=== PATIENT | male | born 1975 | race Caucasian/White ===

== ENCOUNTER 2017-06-17 10:00 | Observation (INO) | payer SELFPAY ==
[2017-06-17 10:40] LABS: Bacteria,Urine 1+ /HPF (Negative); Bilirubin,Urine NEG (Negative); Blood,Urine SM (Negative); Ketones,Urine NEG (Negative); Leukocyte Esterase,Urine NEG (Negative); Mucus,Urine 1+ /HPF; Nitrite,Urine NEG (Negative); Urobilinogen,Urine < 2.0 mg/dL (<2.0)
[2017-06-17 10:59] LABS: Basophils % (Auto) 0.1 % (0.0-1.8); Eosinophils % (Auto) 0.1 % (0.0-4.3); Hematocrit 39.4 % (35.5-45.6); Hemoglobin 13.3 gm/dl (11.8-15.2); Mean Corpuscular HGB Conc 34 % (32-34); Mean Corpuscular Hemoglobin 30 pg (28-32); Mean Corpuscular Volume 89 fl (84-94); Platelet Count 281 K/mm3 (140-440); Red Blood Count 4.45 M/mm3 (3.65-5.03); Red Cell Distribution Width 13.4 % (13.2-15.2)
[2017-06-17 11:18] LABS: Alanine Aminotransferase 28 units/L (7-56); Albumin 4.1 g/dL (3.9-5); Albumin/Globulin Ratio 1.1 %; Alkaline Phosphatase 37 units/L (35-129); Anion Gap 17 mmol/L; BUN/Creatinine Ratio 14; Blood Urea Nitrogen 13 mg/dL (9-20); Calcium 8.7 mg/dL (8.4-10.2); Carbon Dioxide 26 mmol/L (22-30); Chloride 97.2 mmol/L (98-107); Glucose 114 mg/dL (75-100); Lipase 15 units/L (13-60); Potassium 3.5 mmol/L (3.6-5.0); Sodium 137 mmol/L (137-145); Total Protein 7.9 g/dL (6.3-8.2)
[2017-06-17] MEDS ORDERED: NACL 0.9% 1000 ML 1,000 ML ONE (12:40)
[2017-06-17] MEDS ORDERED: ZOFRAN ONE ×2 (12:40→16:06)
[2017-06-17] MEDS ORDERED: DILAUDID ONE ×2 (12:40→16:02)
--- NOTE | 2017-06-17 12:41 | Emergency Department Report ---
ED Abdominal Pain [facility] - General Chief Complaint: Abdominal Pain Stated Complaint: ABDOMINAL PAIN Time Seen by Provider: 06/17/17 12:38 Source: patient Mode of arrival: Ambulatory Limitations: No Limitations - History of Present Illness Initial Comments: Patient has been having lower abdominal pain for the past 2 days. Does state it began in the suprapubic area and migrated to the right. He denied any testicular swelling but stated the pain did radiate there. He also denied any signs of a hernia in his groin. He denied back pain. He stated he felt as if he had fever and chills but did not measure his temperature. He states the pain is moderately severe in the right lower quadrant of the abdomen. He had some nausea earlier but does not complain about this now. He just had some soup for breakfast this a.m. Complaint: abdominal pain -: Gradual, days(s) Location: RLQ Migration to: RLQ (from the suprapubic area) Severity: severe Severity scale (0 -10): 10 Quality: aching Consistency: constant Improves With: nothing Worsens With: nothing - Related Data Allergies Allergy/AdvReac Type Severity Reaction Status Date / Time No Known Allergies Allergy Verified 06/17/17 10:08 ED Review of Systems ROS: Stated complaint: ABDOMINAL PAIN Other details as noted in HPI ED Past Medical Hx - Past Medical History Previous Medical History?: No Additional medical history: Denies any medical history. - Surgical History Past Surgical History?: No - Social History Smoking Status: Never Smoker Substance Use Type: None ED Physical Exam - General Limitations: No Limitations General appearance: alert, in no apparent distress - Head Head exam: Present: atraumatic, normocephalic - Eye Eye exam: Present: normal appearance. Absent: scleral icterus - ENT ENT exam: Present: mucous membranes moist - Neck Neck exam: Present: normal inspection - Respiratory Respiratory exam: Present: normal lung sounds bilaterally. Absent: respiratory distress - Cardiovascular Cardiovascular Exam: Present: regular rate, normal rhythm. Absent: systolic murmur, diastolic murmur, rubs, gallop - GI/Abdominal GI/Abdominal exam: Present: soft, distended, tenderness (mildly quite tender right lower quadrant), guarding, rebound, rigid (forearm in the right lower quadrant but not diffusely), normal bowel sounds, other (positive Rovsing sign) - Rectal Rectal exam: Present: deferred - Extremities Exam Extremities exam: Present: normal inspection - Back Exam Back exam: Present: normal inspection - Neurological Exam Neurological exam: Present: alert, oriented X3, CN II-XII intact. Absent: motor sensory deficit - Psychiatric Psychiatric exam: Present: normal affect, normal mood - Skin Skin exam: Present: warm, dry, intact, normal color. Absent: rash ED Course Vital Signs 06/17/17 06/17/17 06/17/17 10:05 12:35 12:48 Temperature 99.1 F 100.6 F H Pulse Rate 91 H 86 Respiratory 16 20 18 Rate Blood Pressure 131/78 Blood Pressure 146/83 [Right] O2 Sat by Pulse 98 100 Oximetry - Reevaluation(s) Reevaluation #1: Patient is given IV fluids and Zosyn on arrival. The surgeon doctor, Dr. Meza was informed of the probability of appendicitis prior to CT. She came to the emergency department to inform me the CT was positive and she would be taking the patient to the operating room. 06/17/17 14:02 ED Medical Decision Making - Lab Data Result diagrams: 06/17/17 10:43 06/17/17 10:43 Laboratory Results - last 24 hr 06/17/17 06/17/17 06/17/17 10:26 10:43 10:43 WBC 18.0 H RBC 4.45 Hgb 13.3 Hct 39.4 MCV 89 MCH 30 MCHC 34 RDW 13.4 Plt Count 281 Lymph % (Auto) 9.0 L [place] % (Auto) 7.6 H Eos % (Auto) 0.1 Baso % (Auto) 0.1 Lymph # 1.6 [place] # 1.4 H Eos # 0.0 Baso # 0.0 Seg Neutrophils % 83.2 H Seg Neutrophils # 14.9 H Sodium 137 Potassium 3.5 L Chloride 97.2 L Carbon Dioxide 26 Anion Gap 17 BUN 13 Creatinine 0.9 Estimated GFR > 60 BUN/Creatinine Ratio 14 Glucose 114 H Calcium 8.7 Total Bilirubin 0.80 AST 19 ALT 28 Alkaline Phosphatase 37 Total Protein 7.9 Albumin 4.1 Albumin/Globulin Ratio 1.1 Lipase 15 Urine Color Yellow Urine Turbidity Clear Urine pH 6.0 Ur Specific [place] 1.026 Urine Protein 30 mg/dl Urine Glucose (UA) Neg Urine Ketones Neg Urine Blood Sm Urine Nitrite Neg Urine Bilirubin Neg Urine Urobilinogen < 2.0 Ur Leukocyte Esterase Neg Urine WBC (Auto) 1.0 Urine RBC (Auto) 11.0 Urine Bacteria (Auto) 1+ Urine Mucus 1+ - Radiology Data interpreted by me: The patient has a huge nonperforated appendix with multiple appendicoliths. Critical care attestation.: If time is entered above; I have spent that time in minutes in the direct care of this critically ill patient, excluding procedure time. ED Disposition Clinical Impression: Appendicitis Qualifiers: Appendicitis type: acute appendicitis Acute appendicitis type: unspecified acute appendicitis type Qualified Code(s): K35.80 - Unspecified acute appendicitis Disposition: OP ADMIT IP TO THIS HOSP Is pt being admited?: Yes Does the pt Need Aspirin: No Condition: Stable Referrals: PRIMARY CARE, [Primary Care Provider] - 3-5 Days Time of Disposition: 14:05
[2017-06-17] MEDS ORDERED: NACL 0.9% 1000 ML 1,000 ML IV ONE (12:45)
[2017-06-17] MEDS ORDERED: ZOSYN/NS 4.5GM/100ML 4.5 GM/100 ML VIAL IV ONE (12:46)
[2017-06-17] MEDS ORDERED: DILAUDID IV ONE ×2 (12:46→14:04)
[2017-06-17] MEDS ORDERED: ZOFRAN IV ONE (12:46)
[2017-06-17] MEDS ORDERED: NACL ONE (12:55)
--- NOTE | 2017-06-17 13:26 | Cat Scan Report ---
CT ABDOMEN PELVIS WITH CONTRAST: HISTORY: Right lower quadrant abdominal pain. COMPARISON: none. TECHNIQUE: Helical CT in 1.25mm intervals following IV contrast. Sagittal and coronal reconstructions. FINDINGS: Lung bases: normal. Liver: normal. Biliary system: normal. Pancreas: normal. Spleen: normal. Kidneys/ureters/bladder: normal. Adrenal glands: normal. Aorta: normal. Intestines: normal. Appendix: Multiple appendicoliths are identified in the proximal appendix. The appendix is markedly dilated measuring up to 1.3 cm with wall thickening and enhancement. There is moderate surrounding fluid but no evidence for free air or abscess. Pelvic viscera: normal. Musculoskeletal: normal. IMPRESSION: Acute appendicitis. No evidence for perforation at this time.
[2017-06-17] MEDS ORDERED: MORPHINE IV PRN ×2 (14:13→16:16)
[2017-06-17] MEDS ORDERED: ZOFRAN IV PRN (14:13)
[2017-06-17] MEDS ORDERED: TYLENOL PO PRN (14:13)
--- NOTE | 2017-06-17 14:13 | History and Physical Report ---
History of Present Illness Date of examination: 06/17/17 Date of admission: 06/17/17 Chief complaint: abdominal pain History of present illness: 41 yo M with no PMHx presents to ER with 24 hours of severe abdominal pain which started at the umbilicus and now is more severe in the RLQ. It has been associated with subjective fevers, nausea, nonbloody/nonbilious emesis, and diarrhea. The pain is sharp in nature. The patient's last meal was yesterday. He has never had pain like this before. Past History Past Medical History: No medical history Past Surgical History: No surgical history Social history: no significant social history, , full code Family history: no significant family history Medications and Allergies Allergies Allergy/AdvReac Type Severity Reaction Status Date / Time No Known Allergies Allergy Verified 06/17/17 10:08 Active Meds: Active Medications Sodium Chloride (Nacl 0.9% 1000 Ml) 1,000 mls @ 150 mls/hr IV DIRECT CHARLEE Review of Systems All systems: negative (see hpi) Exam Vital Signs Temp Pulse Resp BP Pulse Ox 99.1 F 91 H 16 131/78 98 06/17/17 10:05 06/17/17 10:05 06/17/17 10:05 06/17/17 10:05 06/17/17 10:05 Narrative exam: Gen: AAOx3. NAD CV: S1, S2+ resp: No audible wheezes Abd: soft, ND, + TTP in RLQ, +guarding, +rebound. Ext: No c/c/e Results - Labs 06/17/17 10:43 06/17/17 10:43 Abnormal lab results 06/17/17 06/17/17 Range/Units 10:43 10:43 WBC 18.0 H (4.5-11.0) K/mm3 Lymph % (Auto) 9.0 L (13.4-35.0) % [place] % (Auto) 7.6 H (0.0-7.3) % [place] # 1.4 H (0.0-0.8) K/mm3 Seg Neutrophils % 83.2 H (40.0-70.0) % Seg Neutrophils # 14.9 H (1.8-7.7) K/mm3 Potassium 3.5 L (3.6-5.0) mmol/L Chloride 97.2 L (98-107) mmol/L Glucose 114 H (75-100) mg/dL Diabetes panel 06/17/17 Range/Units 10:43 Sodium 137 (137-145) mmol/L Potassium 3.5 L (3.6-5.0) mmol/L Chloride 97.2 L (98-107) mmol/L Carbon Dioxide 26 (22-30) mmol/L BUN 13 (9-20) mg/dL Creatinine 0.9 (0.8-1.5) mg/dL Glucose 114 H (75-100) mg/dL Calcium 8.7 (8.4-10.2) mg/dL AST 19 (5-40) units/L ALT 28 (7-56) units/L Alkaline Phosphatase 37 (35-129) units/L Total Protein 7.9 (6.3-8.2) g/dL Albumin 4.1 (3.9-5) g/dL Calcium panel 06/17/17 Range/Units 10:43 Calcium 8.7 (8.4-10.2) mg/dL Albumin 4.1 (3.9-5) g/dL Pituitary panel 06/17/17 Range/Units 10:43 Sodium 137 (137-145) mmol/L Potassium 3.5 L (3.6-5.0) mmol/L Chloride 97.2 L (98-107) mmol/L Carbon Dioxide 26 (22-30) mmol/L BUN 13 (9-20) mg/dL Creatinine 0.9 (0.8-1.5) mg/dL Glucose 114 H (75-100) mg/dL Calcium 8.7 (8.4-10.2) mg/dL Adrenal panel 06/17/17 Range/Units 10:43 Sodium 137 (137-145) mmol/L Potassium 3.5 L (3.6-5.0) mmol/L Chloride 97.2 L (98-107) mmol/L Carbon Dioxide 26 (22-30) mmol/L BUN 13 (9-20) mg/dL Creatinine 0.9 (0.8-1.5) mg/dL Glucose 114 H (75-100) mg/dL Calcium 8.7 (8.4-10.2) mg/dL Total Bilirubin 0.80 (0.1-1.2) mg/dL AST 19 (5-40) units/L ALT 28 (7-56) units/L Alkaline Phosphatase 37 (35-129) units/L Total Protein 7.9 (6.3-8.2) g/dL Albumin 4.1 (3.9-5) g/dL - Imaging CT scan - abdomen: report reviewed, image reviewed CT scan - pelvis: report reviewed, image reviewed (acute appendicitis, without perforation) Assessment and Plan 41 yo M with acute nonperforated appendicitis 1. Admit to surgery service GMF 2. NPO 3. IVF - NS@150cc/hr 4. IV abx - zosyn given in ER 5. prn pain and nausea control 6. OR today for appendectomy - all risks of surgery discussed and patient signed consent, all questions answered.
[2017-06-17] MEDS ORDERED: NACL 0.9% 1000 ML 1,000 ML IV SCH ×3 (14:17→17:00)
[2017-06-17] MEDS ORDERED: ZEMURON IV ONE (14:30)
[2017-06-17] MEDS ORDERED: QUELICIN ONE (14:30)
[2017-06-17] MEDS ORDERED: XYLOCAINE MPF 2% ONE (14:30)
[2017-06-17] MEDS ORDERED: SUBLIMAZE ONE (14:30)
[2017-06-17] MEDS ORDERED: DIPRIVAN 10 MG/ML IV ONE (14:31)
[2017-06-17] MEDS ORDERED: XYLOCAINE 1% 20 mL ONE (14:52)
[2017-06-17] MEDS ORDERED: MARCAINE 0.25% INFILTRATI ONE ×2 (14:52→14:53)
[2017-06-17] MEDS ORDERED: NACL 0.9% IR ONE ×2 (14:53)
[2017-06-17] MEDS ORDERED: ROBINUL ONE ×2 (16:01)
[2017-06-17] MEDS ORDERED: NEOSTIGMINE ONE (16:01)
--- NOTE | 2017-06-17 16:15 | Anesthesia Day of Surgery ---
Anesthesia Day of Surgery - Day of Surgery Patient Examined: Yes Patient H&P Reviewed: Yes Patient is NPO: Yes
--- NOTE | 2017-06-17 16:15 | Anesthesia Consultation ---
Anesthesia Consult and Med Hx Date of service: 06/17/17 - Airway Anesthetic Teeth Evaluation: Good ROM Head & Neck: Adequate Mental/Hyoid Distance: Adequate Mallampati Class: Class II Intubation Access Assessment: Probably Good - Pulmonary Exam CTA: Yes - Cardiac Exam Cardiac Exam: RRR - Pre-Operative Health Status ASA Pre-Surgery Classification: ASA1 Proposed Anesthetic Plan: General - Pulmonary Hx Smoking: No - Cardiovascular System Hx Hypertension: No - Central Nervous System Hx Neuromuscular Disorder: No - Endocrine Hx Renal Disease: No
--- NOTE | 2017-06-17 16:54 | Operative Report ---
Operative Report Operative Report: Date of operation: 06/17/17 Preoperative diagnosis: acute appendicitis Postoperative diagnosis: acute gangrenous appendicitis Procedure performed: Laparoscopic appendectomy Surgeon: Tayla Meza DO Anesthesia: GETA Findings: Dilated, thickened, inflammed appendix with evidence of gangrene. Not perforated. EBL:<10cc Specimen: appendix Disposition/Condition: stable to PACU HPI and indication: 41 yo M presented to ER with RLQ pain x24 hours and fevers. He was found to have an elevated WBC and acute appendicitis on CT scan. It was decided to take him to the OR for appendectomy. All risks of surgery were discussed with the patient and his family and consent signed. Procedure in detail: Patient was identified in the preop area and taken back to the OR and placed on the OR table in supine position. After anesthesia was induced a cruz catheter was steriley placed by the circulating nurse. A time out was performed. The abdomen was insufflated via veress needle through a 5mm supraumbilical incision. Once insufflated to 15mmHg the veress needle was withdrawn and a 5mm trocar was placed using visiport. The abdomen was inspected and no underlying injury to the abdominal structures was identified. A 5mm trocar suprapubic and 12 mm LLQ trocars were placed under direct visualization. Local anesthetic was infiltrated into skin at port sites prior to incisions. The appendix was visualized and noted to be dilated, inflammed, and gangrenous. It was also adhesed to the small bowel mesentery. These adhesions were taken down bluntly with great care. The base of the appendix was identified. There was inflammatory fluid in the pelvis and along the right paracolic gutter without evidence of pus. The mesentery of the appendix was ligated using the harmonic scalpel. The base of the appendix was transected using an ethicon flex stapler 45mm white load. The appendix was placed into an endocatch bag and removed via the 12 mm port. This was passed off the table as specimen. The staple line and mesentery were then inspected. A clip was placed at the staple line where there was some mild oozing of blood. This area was irrigated and no further bleeding identified. The pelvis was gently irrigated and simple fluid suctioned out. The ports were all removed under direct visualization and the abdomen desufflated. The 12mm port fascia was closed with a single interrupted 0 vicryl stitch. All skin incisions were closed using 4-0 monocryl subcuticular stitches and skin glue. At the end of the case, all sponge, instrument, sharp counts were correct x2. The patient was awoken from anesthesia, cruz catheter removed, and taken to PACU in stable condition.
[2017-06-17] MEDS: PERCOCET 5/325 PO PRN (21:12)
[2017-06-17] MEDS: ZOSYN/NS 4.5GM/100ML 4.5 GM/100 ML VIAL IV SCH (21:15)
[2017-06-17] MEDS: HEPARIN SUB-Q SCH (22:00)
--- NOTE | 2017-06-17 23:23 | Post Anesthesia Evaluation ---
- Post Anesthesia Evaluation Patient Participated: Yes Airway Patent: Yes Stable Respiratory Function: Yes Nausea/Vomiting: No Temp > 96.8F: Yes Pain Manageable: Yes Adequeate Hydration: Yes Anesthesia Complications: No Block Receding Appropriately: Not Applicable Patient on Ventilator: No
[2017-06-18] MEDS: ZOSYN/NS 4.5GM/100ML 4.5 GM/100 ML VIAL IV SCH ×2 (05:19→16:14)
[2017-06-18 06:03] LABS: Basophils % (Auto) 0.1 % (0.0-1.8); Eosinophils % (Auto) 0.1 % (0.0-4.3); Hematocrit 35.4 % (35.5-45.6); Hemoglobin 12.1 gm/dl (11.8-15.2); Mean Corpuscular HGB Conc 34 % (32-34); Mean Corpuscular Hemoglobin 31 pg (28-32); Mean Corpuscular Volume 91 fl (84-94); Platelet Count 230 K/mm3 (140-440); Red Cell Distribution Width 13.2 % (13.2-15.2); White Blood Count 12.6 K/mm3 (4.5-11.0)
[2017-06-18 06:22] LABS: BUN/Creatinine Ratio 18; Blood Urea Nitrogen 14 mg/dL (9-20); Calcium 7.6 mg/dL (8.4-10.2); Carbon Dioxide 25 mmol/L (22-30); Glucose 101 mg/dL (75-100)
[2017-06-18 06:23] LABS: Anion Gap 17 mmol/L; Chloride 100.3 mmol/L (98-107); Potassium 3.8 mmol/L (3.6-5.0); Sodium 138 mmol/L (137-145)
[2017-06-18] MEDS: HEPARIN SUB-Q SCH ×2 (07:00→13:08)
[2017-06-18 08:34] VITALS: BP 103/66
--- NOTE | 2017-06-18 10:07 | Discharge Summary ---
Providers - Providers Date of Admission: 06/17/17 14:13 Date of discharge: 06/18/17 Attending physician: ISABELLE PALACIO DO Primary care physician: HOUSEHOLD COOK Hospitalization Reason for admission: acute appendicitis Condition: Stable Pertinent studies: Ct A/P Procedures: Laparoscopic appendectomy Hospital course: 41 yo M presented to hospital with abdominal pain. He was diagnosed with acute appendicitis and was taken to the OR for laparoscopic appendectomy. Recovery was uneventful. He was tolerating a regular diet, ambulating, and voiding on his own. Pain was controlled with oral pain meds. Disposition: DC-01 TO HOME OR SELFCARE Time spent for discharge: 20 minutes - Discharge Diagnoses (1) Appendicitis Status: Acute Qualifiers: Appendicitis type: acute appendicitis Acute appendicitis type: unspecified acute appendicitis type Qualified Code(s): K35.80 - Unspecified acute appendicitis Core Measure Documentation - Palliative Care Palliative Care/ Comfort Measures: Not Applicable - Core Measures Any of the following diagnoses?: none Exam - Physical Exam Narrative exam: Gen: AAOx3. NAD CV: s1, S2+ Resp: No audible wheezes Abd: soft, mildly distended, mildly tender. incisions c/d/i. no r/r/g Ext: no c/c/e - Constitutional Vitals: Temp Pulse Resp BP Pulse Ox 99.2 F 92 H 18 103/66 95 06/18/17 08:14 06/18/17 08:14 06/18/17 08:14 06/18/17 08:14 06/18/17 08:14 Plan Activity: other (avoid heavy lifting of more than 15 lbs for the next 2 weeks. No driving if taking narcotic pain meds) Diet: regular Wound: open to air, other (May shower, no baths/hottubs/pools until incisions healed. Pat incisions dry, do not scrub) Additional Instructions: Call surgeon's office if temp>100.4, intractable nausea /vomiting, increasing abdominal pain Follow up with: ISABELLE PALACIO DO [Staff Physician] - 14 Days PRIMARY CARE, [Primary Care Provider] - 14 Days Prescriptions: oxyCODONE /ACETAMINOPHEN [Percocet 5/325 mg] 2 tab PO Q6H PRN #20 tablet PRN Reason: Pain, Moderate (4-6)
[2017-06-18] MEDS: PERCOCET 5/325 PO PRN (10:27)
[2017-06-18] MEDS ORDERED: MORPHINE IV ONE (12:00)
[2017-06-18] MEDS ORDERED: MIRALAX 3350 PO ONE (14:00)
== END 2017-06-18 16:35 | disposition home or self-care (01) ==
LOC: ED 10:00 → 3B-SURG 14:13
PROVIDERS: ADMIT Surgery; ATTEND Surgery
DX: K35.80 Unspecified acute appendicitis (principal)
CPT/HCPCS: 36415; 44970; 74177; 80048; 80053; 81001; 83690; 85025; 88304; 96365; 96372; 96375; 96376; 99285; A4217; G0378; J0330; J1170; J1644; J2270; J2405; J2543; J2704; J2710; J3010; J7030; Q9967

== ENCOUNTER 2017-06-21 08:04 | Emergency (ER) | payer OTHER ==
[2017-06-21 09:30] LABS: Basophils % (Auto) 0.2 % (0.0-1.8); Hematocrit 39.2 % (35.5-45.6); Hemoglobin 13.2 gm/dl (11.8-15.2); Mean Corpuscular HGB Conc 34 % (32-34); Mean Corpuscular Hemoglobin 30 pg (28-32); Mean Corpuscular Volume 90 fl (84-94); Platelet Count 380 K/mm3 (140-440); Red Blood Count 4.34 M/mm3 (3.65-5.03); Red Cell Distribution Width 13.2 % (13.2-15.2); White Blood Count 14.9 K/mm3 (4.5-11.0)
[2017-06-21 09:35] LABS: Bilirubin,Urine NEG (Negative); Blood,Urine SM (Negative); Ketones,Urine NEG (Negative); Leukocyte Esterase,Urine NEG (Negative); Nitrite,Urine NEG (Negative); Protein,Urine <15 mg/dL mg/dL (Negative)
[2017-06-21 09:39] LABS: Anion Gap 19 mmol/L; BUN/Creatinine Ratio 14; Blood Urea Nitrogen 10 mg/dL (9-20); Calcium 8.9 mg/dL (8.4-10.2); Carbon Dioxide 27 mmol/L (22-30); Chloride 96.3 mmol/L (98-107); Glucose 107 mg/dL (75-100); Potassium 5.2 mmol/L (3.6-5.0); Sodium 137 mmol/L (137-145)
[2017-06-21] MEDS ORDERED: NACL 0.9% 500 ML 500 ML IV ONE (10:22)
--- NOTE | 2017-06-21 10:22 | Emergency Department Report ---
ED General Adult HPI - General Chief complaint: Urogenital-Male Stated complaint: ABDOMINAL PAIN Time Seen by Provider: 06/21/17 10:20 Source: patient, RN notes reviewed, old records reviewed Mode of arrival: Ambulatory Limitations: Language Barrier - History of Present Illness Initial comments: senior underwriting assistant: Araceli Sommer This is a 41-year-old male who was previously unknown to this provider, patient recently admitted to this hospital for laparoscopic appendectomy. Patient presents to the ER with a complaint of left flank pain. The pain is achy and sharp. It increases with palpation and range of motion. It decreases with rest. Patient reports like he feels like something is occasionally moving into his left testicle. However he denies testicular pain, testicular swelling , irritative/obstructive urinary symptoms. No headache, neck pain, chest pain, right lower quadrant abdominal pain or shortness of breath. -: Gradual, hour(s) Location: abdomen Radiation: other (groin, testicle) Consistency: constant Improves with: rest Worsens with: movement Associated Symptoms: denies: confusion, chest pain, cough, diaphoresis, fever/ chills, headaches, loss of appetite, malaise, nausea/vomiting, shortness of breath, syncope, weakness - Related Data Previous Rx's Medication Instructions Recorded Last Taken Type oxyCODONE /ACETAMINOPHEN [Percocet 2 tab PO Q6H PRN #20 tablet 06/18/17 Unknown Rx 5/325 mg] Acetaminophen [Tylenol Arthritis] 650 mg PO Q6HR PRN #30 tablet.er 06/21/17 Unknown Rx oxyCODONE [Roxicodone] 5 mg PO Q6HR PRN #20 tablet 06/21/17 Unknown Rx Allergies Allergy/AdvReac Type Severity Reaction Status Date / Time No Known Allergies Allergy Verified 06/21/17 08:42 ED Review of Systems ROS: Stated complaint: ABDOMINAL PAIN Other details as noted in HPI Constitutional: denies: fever Eyes: denies: eye discharge ENT: denies: epistaxis Respiratory: denies: cough Cardiovascular: denies: chest pain Gastrointestinal: abdominal pain Genitourinary: denies: urgency, dysuria, testicular pain Musculoskeletal: as per HPI Skin: as per HPI Neurological: as per HPI Psychiatric: as per HPI ED Past Medical Hx - Past Medical History Hx Hypertension: No Hx Congestive Heart Failure: No Hx Diabetes: No Hx Renal Disease: No Hx Asthma: No Hx COPD: No Additional medical history: Denies any medical history. - Surgical History Past Surgical History?: No - Social History Smoking Status: Current Some Day Smoker - Medications Home Medications: Home Medications Medication Instructions Recorded Confirmed Last Taken Type oxyCODONE /ACETAMINOPHEN [Percocet 2 tab PO Q6H PRN #20 tablet 06/18/17 Unknown Rx 5/325 mg] Acetaminophen [Tylenol Arthritis] 650 mg PO Q6HR PRN #30 tablet.er 06/21/17 Unknown Rx oxyCODONE [Roxicodone] 5 mg PO Q6HR PRN #20 tablet 06/21/17 Unknown Rx ED Physical Exam - General Limitations: Language Barrier General appearance: alert, in no apparent distress - Head Head exam: Present: atraumatic, normocephalic - Eye Eye exam: Present: normal appearance, EOMI. Absent: nystagmus - ENT ENT exam: Present: normal exam, normal orophraynx, mucous membranes moist, normal external ear exam - Neck Neck exam: Present: normal inspection, full ROM - Respiratory Respiratory exam: Present: normal lung sounds bilaterally. Absent: respiratory distress - Cardiovascular Cardiovascular Exam: Present: regular rate, normal rhythm, normal heart sounds. Absent: systolic murmur, diastolic murmur, rubs, gallop - GI/Abdominal GI/Abdominal exam: Present: soft, tenderness, normal bowel sounds, other (the left flank is tender, there is no right lower quadrant tenderness, there is no redness, pus or streaking). Absent: distended, guarding, rebound, rigid, pulsatile mass - Rectal Rectal exam: Present: deferred - exam: Present: normal inspection, other (there is no testicular tenderness. There is normal testicular lie bilaterally. There is normal cremasteric reflex bilaterally.). Absent: testicular tenderness External exam: Present: normal external exam - Extremities Exam Extremities exam: Present: normal inspection, full ROM, normal capillary refill. Absent: pedal edema, joint swelling, calf tenderness - Back Exam Back exam: Present: normal inspection, full ROM. Absent: tenderness, CVA tenderness (R), paraspinal tenderness, vertebral tenderness - Neurological Exam Neurological exam: Present: alert, oriented X3, CN II-XII intact, other ( Extraocular movements intact. Tongue midline. No facial droop. Facial sensation intact to light touch in the V1, V2, V3 distribution bilaterally. 5 and 5 strength in 4 extremities.. Sensation is intact to light touch in 4 extremities.). Absent: motor sensory deficit - Psychiatric Psychiatric exam: Present: normal affect, normal mood - Skin Skin exam: Present: warm, dry, intact, normal color. Absent: rash ED Course Vital Signs 06/21/17 06/21/17 06/21/17 08:42 10:23 10:30 Temperature 98.6 F Pulse Rate 80 85 85 Respiratory 20 16 20 Rate Blood Pressure 128/79 137/88 O2 Sat by Pulse 99 Oximetry 06/21/17 10:35 Temperature 98.5 F Pulse Rate Respiratory Rate Blood Pressure O2 Sat by Pulse Oximetry - Reevaluation(s) Reevaluation #1: 06/21/17 12:37 Differential diagnosis, including but not limited to: Postoperative pain, intra- abdominal abscess, musculoskeletal pain Assessment and plan: 41-year-old male with a primary complaint of left lower quadrant abdominal pain after recent laparoscopic appendectomy. He is adamant using a fluent gettering operator that he has no testicular pain whatsoever. On this providers examination, he has no testicular tenderness, and normal cremasteric reflex, and a normal testicular lie. A testicular ultrasound was ordered prior to my evaluation, and had some concerning findings for possible torsion. My opinion, the patient's history and physical do not suggest or support the diagnosis of testicular torsion. The patient was also seen and personally examined by the urology specialist, Dr. Ross Jackson; he had the patient's testicular ultrasound repeated, and he indicated that the patient's history and physical will also not consistent with testicular torsion, and he indicated the patient did not require emergent orchiectomy. Patient was also seen and personally examined by his general surgeon, Dr. Palacio ; she requested conservative care, pain control, and heating pad. Reevaluation #2: 06/21/17 14:01 CT scan of the abdomen and pelvis with IV contrast demonstrates expected postoperative from postsurgical changes. Patient was again interviewed with the gettering operator, Araceli Sommer; the patient is adamant that his never had testicular pain, he has only had postoperative pain in the left side. His general surgeon has recommended a warm compress, she has requested that I refill the prescriptions pain medication, the patient will be discharged at this time. He has been resting comfortably in the ER for hours without clinical decompensation. ADDENDUM Addendum by Dr. Garg, 12:30 PM, 06/21/2017. 3 additional images obtained by Dr. Jackson in ultrasound department, 11:13 AM, 06/21/2017 again demonstrates preserved left testicular blood flow. Though echotexture again slightly heterogeneous, focal hypoechoic/heterogeneous appearance towards the inferior aspect of the left testicle now not as clearly demonstrated. Inflammatory changes may again be considered clinically with testicular torsion not as strongly suspected clinically. ED Medical Decision Making - Lab Data Result diagrams: 06/21/17 09:09 06/21/17 09:09 Vital Signs 06/21/17 06/21/17 06/21/17 08:42 10:23 10:30 Temperature 98.6 F Pulse Rate 80 85 85 Respiratory 20 16 20 Rate Blood Pressure 128/79 137/88 O2 Sat by Pulse 99 Oximetry 06/21/17 10:35 Temperature 98.5 F Pulse Rate Respiratory Rate Blood Pressure O2 Sat by Pulse Oximetry Lab Results 06/21/17 06/21/17 06/21/17 Range/Units 08:48 09:09 09:09 WBC 14.9 H (4.5-11.0) K/mm3 RBC 4.34 (3.65-5.03) M/mm3 Hgb 13.2 (11.8-15.2) gm/dl Hct 39.2 (35.5-45.6) % MCV 90 (84-94) fl MCH 30 (28-32) pg MCHC 34 (32-34) % RDW 13.2 (13.2-15.2) % Plt Count 380 (140-440) K/mm3 Lymph % (Auto) 9.0 L (13.4-35.0) % [place] % (Auto) 7.6 H (0.0-7.3) % Eos % (Auto) 2.0 (0.0-4.3) % Baso % (Auto) 0.2 (0.0-1.8) % Lymph # 1.3 (1.2-5.4) K/mm3 [place] # 1.1 H (0.0-0.8) K/mm3 Eos # 0.3 (0.0-0.4) K/mm3 Baso # 0.0 (0.0-0.1) K/mm3 Seg Neutrophils % 81.2 H (40.0-70.0) % Seg Neutrophils # 12.1 H (1.8-7.7) K/mm3 Sodium 137 (137-145) mmol/L Potassium 5.2 H D (3.6-5.0) mmol/L Chloride 96.3 L (98-107) mmol/L Carbon Dioxide 27 (22-30) mmol/L Anion Gap 19 mmol/L BUN 10 (9-20) mg/dL Creatinine 0.7 L (0.8-1.5) mg/dL Estimated GFR > 60 ml/min BUN/Creatinine Ratio 14 % Glucose 107 H (75-100) mg/dL Calcium 8.9 D (8.4-10.2) mg/dL Urine Color Yellow (Yellow) Urine Turbidity Clear (Clear) Urine pH 5.0 (5.0-7.0) Ur Specific [place] 1.023 (1.003-1.030) Urine Protein <15 mg/dl (Negative) mg/dL Urine Glucose (UA) Neg (Negative) mg/dL Urine Ketones Neg (Negative) mg/dL Urine Blood Sm (Negative) Urine Nitrite Neg (Negative) Urine Bilirubin Neg (Negative) Urine Urobilinogen 2.0 (<2.0) mg/dL Ur Leukocyte Esterase Neg (Negative) Urine WBC (Auto) 1.0 (0.0-6.0) /HPF Urine RBC (Auto) 11.0 (0.0-6.0) /HPF - Radiology Data Radiology results: report reviewed, image reviewed [facility] [address] [place] [address] Ultrasound Report Signed Patient: MICHAEL GRANDE MR#: [id number] : 1975 Acct:[id number] Age/Sex: 41 / M ADM Date: 06/21/17 Loc: ED Attending Dr: Ordering Physician: TACO BELLA MD Date of Service: 06/21/17 Procedure(s): US testicular doppler comp Accession Number(s): [id number] cc: TACO BELLA MD ULTRASOUND SCROTAL INDICATION: 41 year old with pain and swelling x 1 day. Status post appendix surgery 5 days ago. COMPARISON: 06/17/2017 CT. FINDINGS: Longitudinal and transverse grayscale and color flow sonographic evaluation of the scrotum and its contents performed. RIGHT: Normal testicular contour, echotexture and blood flow. Right testicle is 4.4 x 2.9 x 2.4 cm. Two small right epididymal head cysts measuring approximately 4 mm. Right epididymis approximately 1.2 x 0.8 cm, image 21. LEFT: Normal left testicular contour. It is however heterogeneous in its mid to lower aspect with diminished/absent blood flow in that region as on image 39. Some arterial flow though demonstrated in the upper to mid testicular aspect as on image 40. Small left hydrocele with diffuse low-level intrinsic echoes also seen, image 46. Left epididymis approximately 0.8 x 0.6 cm, image 42 with a 2 mm intrinsic cyst, image 43. Approximately 3.5 x 1 cm echogenic structure with vascularity noted in the left groin as on images 23-27, partly displaceable with compression and not excluded for a hernia. CONCLUSION: 1. Heterogeneous left testicle inferiorly with diminished/absent blood flow. Findings may represent a developing infarct or torsion in an appropriate setting. 2. Few other findings as small bilateral hydroceles, small epididymal cysts and nonspecific left groin echogenicity, amongst others, as detailed above. Please correlate. I phoned the above results to Dr. Bella in the ER, 10 AM, 06/21/2017. Thank you for the opportunity to participate in this patient's care. Transcribed By: RS Dictated By: CELY GARG MD Electronically Authenticated By: CELY GARG MD Signed Date/Time: 06/21/17 1019 Patient: MICHAEL GRANDE MR#: [id number] : 1975 Acct:[id number] Age/Sex: 41 / M ADM Date: 06/21/17 Loc: ED Attending Dr: Ordering Physician: TACO BELLA MD Date of Service: 06/21/17 Procedure(s): CT abdomen pelvis w con Accession Number(s): [id number] cc: TACO BELLA MD CT ABDOMEN AND PELVIS WITH CONTRAST INDICATION: Left-sided abdominal pain. Status post appendix surgery 5 days ago. COMPARISON: None similar. FINDINGS: Abdomen and pelvis CT performed following intravenous administration of 100 cc of Omnipaque 300. LUNG BASES: Small bibasilar pleural effusions and atelectasis, left more than right. Top normal heart size. Right hemidiaphragm slightly elevated. Slight nonspecific distal esophageal prominence. ABDOMEN: Homogenous liver, spleen and pancreas with unremarkable gallbladder, adrenals, aorta, IVC and kidneys. Slight bilateral perinephric stranding. Right hepatic lobe 20 cm in midclavicular length. No size significant adenopathy. Interval post appendectomy changes in the right lower quadrant with mild stranding. Small mesenteric fluid with lobulated/bilobed configuration in the right lower quadrant as on axial image 259, series 2, measuring approximately 8.5 cm transverse x 2 cm AP. Additional mesenteric fluid as near the root also seen more superiorly on the left measuring approximately 3 x 2 cm, axial image 203. Nonopacified GI tract evaluation otherwise limited, though grossly nonobstructive. Mild to moderate ascending and transverse colon stool. No pneumoperitoneum. PELVIS: Approximately 3.8 x 3 cm fluid noted in the mid pelvis, anterior to the rectum with minimal peripheral wall visibility, suggesting early organization. Urinary bladder, seminal vesicles, prostate and rectosigmoid appear within normal limits. No size significant adenopathy. No evidence of an inguinal hernia. Small bilateral hydroceles and some scrotal edema possible as on axial image 429, amongst others. Asymmetric enlargement of left flank muscles with intermuscular hypodense fluid measuring 8 HU as on axial images 130-260, series 2, amongst others with left sided subcutaneous stranding as well. Mild multilevel spinal spurring and slight bilateral SI joint degenerative changes. CONCLUSION: 1. Interval appendectomy with resolving intra-abdominal inflammatory changes, as described. Small mesenteric fluid noted in the mid to lower abdomen and the pelvis, as described. 2. Asymmetric left flank subcutaneous edema and muscle hypodensity/enlargement is also new, presumed iatrogenic. Please correlate. 3. New small bibasilar atelectasis and pleural effusions. 4. Few other incidental findings, as above. Thank you for the opportunity to participate in this patient's care. Transcribed By: RS Dictated By: CELY GARG MD Electronically Authenticated By: CELY GARG MD Signed Date/Time: 06/21/17 [address] Garg, 12:30 PM, 06/21/2017. 3 additional images obtained by Dr. Jackson in ultrasound department, 11:13 AM, 06/21/2017 again demonstrates preserved left testicular blood flow. Though echotexture again slightly heterogeneous, focal hypoechoic/heterogeneous appearance towards the inferior aspect of the left testicle now not as clearly demonstrated. Inflammatory changes may again be considered clinically with testicular torsion not as strongly suspected clinically. Critical care attestation.: If time is entered above; I have spent that time in minutes in the direct care of this critically ill patient, excluding procedure time. ED Disposition Clinical Impression: Abdominal wall pain Disposition: DC-01 TO HOME OR SELFCARE Is pt being admited?: No Does the pt Need Aspirin: No Condition: Stable Instructions: Acute Abdominal Pain (ED) Additional Instructions: Take the pain medication as needed/directed. If taking the oxycodone, do not drive, consume alcohol, or make important decisions. Follow-up with your general surgeon, Dr. Palacio on June 27 as scheduled. Ultrasound of the left testicle demonstrated nonspecific abnormalities, please follow up with the listed urology specialist, Dr. Root, within the next 2 weeks. Return to the ER right away with new pain, worsening pain, migration of pain, fevers, chills, lethargy, irritability, projectile vomiting, change in mental status, confusion, inability to tolerate liquid feeds. [place] el medicamento para el dolor segn sea necesario / dirigido. Si mickey la oxicodona, no maneje, consuma alcohol o tome decisiones importantes. Tomasa un seguimiento con jaquez cirujano general, el Dr. Palacio el pranay estaba previsto. La ecografa del testculo tomasa demostr anormalidades inespecficas. Tomasa el seguimiento con la especialista en urologa mencionada, la Dra. Root, en las prximas 2 semanas. Regrese a la javier de urgencias inmediatamente con dolor nuevo, empeoramiento del dolor, migracin de dolor, fiebre, escalofros, letargo , irritabilidad, vmitos de proyectil, cambio en el estado mental, confusin, incapacidad para tolerar alimentos lquidos. Prescriptions: Acetaminophen [Tylenol Arthritis] 650 mg PO Q6HR PRN #30 tablet.er PRN Reason: Pain oxyCODONE [Roxicodone] 5 mg PO Q6HR PRN #20 tablet PRN Reason: Pain Referrals: PRIMARY CARE,MD [Primary Care Provider] - 3-5 Days ISABELLE PALACIO DO [Staff Physician] - 3-5 Days GALLO ROOT MD [Staff Physician] - 3-5 Days
--- NOTE | 2017-06-21 10:25 | Ultrasound Report ---
ULTRASOUND SCROTAL INDICATION: 41 year old with pain and swelling x 1 day. Status post appendix surgery 5 days ago. COMPARISON: 06/17/2017 CT. FINDINGS: Longitudinal and transverse grayscale and color flow sonographic evaluation of the scrotum and its contents performed. RIGHT: Normal testicular contour, echotexture and blood flow. Right testicle is 4.4 x 2.9 x 2.4 cm. Two small right epididymal head cysts measuring approximately 4 mm. Right epididymis approximately 1.2 x 0.8 cm, image 21. LEFT: Normal left testicular contour. It is however heterogeneous in its mid to lower aspect with diminished/absent blood flow in that region as on image 39. Some arterial flow though demonstrated in the upper to mid testicular aspect as on image 40. Small left hydrocele with diffuse low-level intrinsic echoes also seen, image 46. Left epididymis approximately 0.8 x 0.6 cm, image 42 with a 2 mm intrinsic cyst, image 43. Approximately 3.5 x 1 cm echogenic structure with vascularity noted in the left groin as on images 23-27, partly displaceable with compression and not excluded for a hernia. CONCLUSION: 1. Heterogeneous left testicle inferiorly with diminished/absent blood flow. Findings may represent a developing infarct or torsion in an appropriate setting. 2. Few other findings as small bilateral hydroceles, small epididymal cysts and nonspecific left groin echogenicity, amongst others, as detailed above. Please correlate. I phoned the above results to Dr. Bella in the ER, 10 AM, 06/21/2017. Thank you for the opportunity to participate in this patient's care.
[2017-06-21 10:37] VITALS: BP 137/88
[2017-06-21] MEDS ORDERED: NACL ONE (10:50)
--- NOTE | 2017-06-21 12:06 | Consultation ---
History of Present Illness Consult date: 06/21/17 Chief complaint: Abdominal pain - History of present illness History of present illness: 41-year-old male with no past medical history, recent laparoscopic appendectomy on 06/17/2017 presents to the emergency room with complaints of left-sided abdominal pain. The patient states that this pain started today. The pain is sharp and nonradiating. He had an uneventful recovery from his appendectomy and has been tolerating a regular diet, without nausea or vomiting. He denies fevers/chills, chest pain, shortness of breath. He had a normal bowel movement yesterday. Past History Past Medical History: No medical history Past Surgical History: appendectomy Social history: no significant social history Family history: no significant family history Medications and Allergies Allergies Allergy/AdvReac Type Severity Reaction Status Date / Time No Known Allergies Allergy Verified 06/21/17 08:42 Home Medications Medication Instructions Recorded Confirmed Last Taken Type oxyCODONE /ACETAMINOPHEN [Percocet 2 tab PO Q6H PRN #20 tablet 06/18/17 Unknown Rx 5/325 mg] Acetaminophen [Tylenol Arthritis] 650 mg PO Q6HR PRN #30 tablet.er 06/21/17 Unknown Rx oxyCODONE [Roxicodone] 5 mg PO Q6HR PRN #20 tablet 06/21/17 Unknown Rx Review of Systems All systems: negative (see hpi) Exam Vital Signs Temp Pulse Resp BP Pulse Ox 98.6 F 80 20 128/79 99 06/21/17 08:42 06/21/17 08:42 06/21/17 08:42 06/21/17 08:42 06/21/17 08:42 Narrative exam: General: Awake, alert, oriented 3. No apparent distress CV: S1, S2 present Respiratory: No audible wheezes Abdomen: Soft, nondistended, point tenderness to palpation over left sided abdominal incision. No rebound, rigidity, guarding. There is no ecchymosis or inflammation of the skin. There is no fluctuance. There is mild fullness of the left flank. All incisions are healing well : No pain on palpation of testicles, normal scrotum Results - Labs 06/21/17 09:09 06/21/17 09:09 Abnormal lab results 06/21/17 06/21/17 Range/Units 09:09 09:09 WBC 14.9 H (4.5-11.0) K/mm3 Lymph % (Auto) 9.0 L (13.4-35.0) % [place] % (Auto) 7.6 H (0.0-7.3) % [place] # 1.1 H (0.0-0.8) K/mm3 Seg Neutrophils % 81.2 H (40.0-70.0) % Seg Neutrophils # 12.1 H (1.8-7.7) K/mm3 Potassium 5.2 H D (3.6-5.0) mmol/L Chloride 96.3 L (98-107) mmol/L Creatinine 0.7 L (0.8-1.5) mg/dL Glucose 107 H (75-100) mg/dL Diabetes panel 06/21/17 Range/Units 09:09 Sodium 137 (137-145) mmol/L Potassium 5.2 H D (3.6-5.0) mmol/L Chloride 96.3 L (98-107) mmol/L Carbon Dioxide 27 (22-30) mmol/L BUN 10 (9-20) mg/dL Creatinine 0.7 L (0.8-1.5) mg/dL Glucose 107 H (75-100) mg/dL Calcium 8.9 D (8.4-10.2) mg/dL Calcium panel 06/21/17 Range/Units 09:09 Calcium 8.9 D (8.4-10.2) mg/dL Pituitary panel 06/21/17 Range/Units 09:09 Sodium 137 (137-145) mmol/L Potassium 5.2 H D (3.6-5.0) mmol/L Chloride 96.3 L (98-107) mmol/L Carbon Dioxide 27 (22-30) mmol/L BUN 10 (9-20) mg/dL Creatinine 0.7 L (0.8-1.5) mg/dL Glucose 107 H (75-100) mg/dL Calcium 8.9 D (8.4-10.2) mg/dL Adrenal panel 06/21/17 Range/Units 09:09 Sodium 137 (137-145) mmol/L Potassium 5.2 H D (3.6-5.0) mmol/L Chloride 96.3 L (98-107) mmol/L Carbon Dioxide 27 (22-30) mmol/L BUN 10 (9-20) mg/dL Creatinine 0.7 L (0.8-1.5) mg/dL Glucose 107 H (75-100) mg/dL Calcium 8.9 D (8.4-10.2) mg/dL - Imaging CT scan - abdomen: report reviewed, image reviewed CT scan - pelvis: report reviewed, image reviewed Additional studies: Testicular ultrasound Assessment and Plan 41 yo M with left sided abdominal pain, hx laparoscopic appendectomy on 06/17/17 , secondary to post op muscle/subcutaneous tissue edema at trocar site. 1. Ct scan shows post operative changes. 2. heating pad to left abdomen 3. PO pain control 4. no signs of testicular torsion on follow up ultrasound with Dr. Jackson - follow up with urology in 2 weeks 5. follow up with general surgery in 10 days for post op check D/W Dr. Bella
--- NOTE | 2017-06-21 12:41 | Cat Scan Report ---
CT ABDOMEN AND PELVIS WITH CONTRAST INDICATION: Left-sided abdominal pain. Status post appendix surgery 5 days ago. COMPARISON: None similar. FINDINGS: Abdomen and pelvis CT performed following intravenous administration of 100 cc of Omnipaque 300. LUNG BASES: Small bibasilar pleural effusions and atelectasis, left more than right. Top normal heart size. Right hemidiaphragm slightly elevated. Slight nonspecific distal esophageal prominence. ABDOMEN: Homogenous liver, spleen and pancreas with unremarkable gallbladder, adrenals, aorta, IVC and kidneys. Slight bilateral perinephric stranding. Right hepatic lobe 20 cm in midclavicular length. No size significant adenopathy. Interval post appendectomy changes in the right lower quadrant with mild stranding. Small mesenteric fluid with lobulated/bilobed configuration in the right lower quadrant as on axial image 259, series 2, measuring approximately 8.5 cm transverse x 2 cm AP. Additional mesenteric fluid as near the root also seen more superiorly on the left measuring approximately 3 x 2 cm, axial image 203. Nonopacified GI tract evaluation otherwise limited, though grossly nonobstructive. Mild to moderate ascending and transverse colon stool. No pneumoperitoneum. PELVIS: Approximately 3.8 x 3 cm fluid noted in the mid pelvis, anterior to the rectum with minimal peripheral wall visibility, suggesting early organization. Urinary bladder, seminal vesicles, prostate and rectosigmoid appear within normal limits. No size significant adenopathy. No evidence of an inguinal hernia. Small bilateral hydroceles and some scrotal edema possible as on axial image 429, amongst others. Asymmetric enlargement of left flank muscles with intermuscular hypodense fluid measuring 8 HU as on axial images 130-260, series 2, amongst others with left sided subcutaneous stranding as well. Mild multilevel spinal spurring and slight bilateral SI joint degenerative changes. CONCLUSION: 1. Interval appendectomy with resolving intra-abdominal inflammatory changes, as described. Small mesenteric fluid noted in the mid to lower abdomen and the pelvis, as described. 2. Asymmetric left flank subcutaneous edema and muscle hypodensity/enlargement is also new, presumed iatrogenic. Please correlate. 3. New small bibasilar atelectasis and pleural effusions. 4. Few other incidental findings, as above. Thank you for the opportunity to participate in this patient's care.
--- NOTE | 2017-06-21 22:41 | Consultation ---
HISTORY OF PRESENT ILLNESS: The patient is a gentleman who is 3 days post-appendectomy, who has left-sided pain. I was called as an emergency to evaluate the patient with left testicular torsion after ultrasound showed no flow. We prepared the operating room. I was not distribution system operator, but I said I would take care of this patient. I had to find out that he just recently had an appendectomy and I saw him over a CAT scan. His examination was perfectly normal. Scrotum was normal. He is uncircumcised. Testes descended, absolutely no pain, no tenderness, no skin swelling, no erythema, no irregularities and no pain. His pain is over the incision site in the left mid abdomen where the appendix was removed. PAST MEDICAL HISTORY: As mentioned above. FAMILY HISTORY: Noncontributory. REVIEW OF SYSTEMS: No nausea or vomiting. Bowels are moving and voiding freely. PHYSICAL EXAMINATION: GENITALIA: His testes are descended bilaterally, symmetrical, no tenderness, no epididymal tenderness, no masses. Normal cord. Normal inguinal canal. Normal skin. Negative Prehn's sign, uncircumcised normal meatus. CT scan showed edema where the surgery was over the incision site. ASSESSMENT: I brought him back. Ultrasound has excellent flow to the testes. There is a little heterogenicity in the testicular architecture. The patient was told he needs followup. It does not look like neoplastic changes, may be old inflammation. PLAN: Will be followup evaluation as an outpatient after he recovers from his appendectomy. JOB# [id number] RADHA/JUAN
== END 2017-06-21 14:16 | disposition home or self-care (01) ==
LOC: ED 08:04
DX: R10.9 Unspecified abdominal pain (principal); F17.200 Nicotine dependence, unspecified, uncomplicated
CPT/HCPCS: 36415; 74177; 80048; 81001; 85025; 93975; 99284; J7040; Q9967

== ENCOUNTER 2017-07-08 07:34 | Inpatient (IN) | payer OTHER ==
[2017-07-08 08:20] LABS: Basophils % (Auto) 0.2 % (0.0-1.8); Eosinophils # (Auto) 0.1 K/mm3 (0.0-0.4); Eosinophils % (Auto) 0.6 % (0.0-4.3); Hematocrit 35.1 % (35.5-45.6); Hemoglobin 12.1 gm/dl (11.8-15.2); Lymphocytes # (Auto) 1.9 K/mm3 (1.2-5.4); Lymphocytes % (Auto) 15.6 % (13.4-35.0); Mean Corpuscular HGB Conc 34 % (32-34); Mean Corpuscular Hemoglobin 30 pg (28-32); Mean Corpuscular Volume 88 fl (84-94); Monocytes # (Auto) 1.2 K/mm3 (0.0-0.8); Monocytes % (Auto) 9.3 % (0.0-7.3); Platelet Count 414 K/mm3 (140-440); Red Blood Count 3.98 M/mm3 (3.65-5.03)
[2017-07-08 08:36] LABS: Alanine Aminotransferase 56 units/L (7-56); Albumin 3.6 g/dL (3.9-5); BUN/Creatinine Ratio 16; Blood Urea Nitrogen 11 mg/dL (9-20); Calcium 9.3 mg/dL (8.4-10.2); Hemolysis Index 10; Lipase 18 units/L (13-60)
[2017-07-08 08:53] LABS: Bilirubin,Urine NEG (Negative); Blood,Urine MOD (Negative); Color,Urine Yellow (Yellow); Mucus,Urine FEW /HPF; Nitrite,Urine NEG (Negative); Protein,Urine <15 mg/dL mg/dL (Negative)
[2017-07-08] MEDS ORDERED: NACL 0.9% 1000 ML 1,000 ML IV ONE ×2 (10:48→12:13)
[2017-07-08] MEDS ORDERED: TORADOL IV ONE (10:48)
--- NOTE | 2017-07-08 12:12 | Emergency Department Report ---
ED Abdominal Pain HPI - General Chief Complaint: Abdominal Pain Stated Complaint: ABD PAIN Time Seen by Provider: 07/08/17 10:47 Source: patient Mode of arrival: Ambulatory Limitations: Language Barrier - History of Present Illness Initial Comments: 41-year-old male presents with complaint of mid and lower abdominal pain with difficulty moving his bowels for 5 days. Patient states that 2 weeks ago he had a laparoscopic appendectomy done with Dr. Derrick rivera at [facility]. Patient is awake alert and oriented 3 denies fevers or chills but does state that abdominal pain is intense and worsening. Some associated nausea. MD Complaint: abdominal pain Onset/Timin -: days(s) Location: diffuse, periumbilical, suprapubic Migration to: suprapubic Severity: moderate Severity scale (0 -10): 6 Consistency: constant Context: recent surgery/procedure (lap appendecotmy 2 weeks ago) Associated Symptoms: denies other symptoms, nausea, constipation - Related Data Previous Rx's Medication Instructions Recorded Last Taken Type oxyCODONE /ACETAMINOPHEN [Percocet 2 tab PO Q6H PRN #20 tablet 06/18/17 Unknown Rx 5/325 mg] Acetaminophen [Tylenol Arthritis] 650 mg PO Q6HR PRN #30 tablet.er 06/21/17 Unknown Rx oxyCODONE [Roxicodone] 5 mg PO Q6HR PRN #20 tablet 06/21/17 Unknown Rx Allergies Allergy/AdvReac Type Severity Reaction Status Date / Time No Known Allergies Allergy Verified 06/21/17 08:42 ED Review of Systems ROS: Stated complaint: ABD PAIN Other details as noted in HPI Constitutional: denies: chills, fever Eyes: denies: eye pain, eye discharge, vision change ENT: denies: ear pain, throat pain Respiratory: denies: cough, shortness of breath, wheezing Cardiovascular: denies: chest pain, palpitations Endocrine: no symptoms reported Gastrointestinal: abdominal pain, nausea. denies: diarrhea Genitourinary: denies: urgency, dysuria Musculoskeletal: denies: back pain, joint swelling, arthralgia Skin: denies: rash, lesions Neurological: denies: headache, weakness, paresthesias Psychiatric: denies: anxiety, depression Hematological/Lymphatic: denies: easy bleeding, easy bruising ED Past Medical Hx - Past Medical History Previous Medical History?: No Hx Hypertension: No Hx Congestive Heart Failure: No Hx Diabetes: No Hx Renal Disease: No Hx Asthma: No Hx COPD: No Additional medical history: Denies any medical history. - Surgical History Past Surgical History?: Yes Hx Appendectomy: Yes - Social History Smoking Status: Current Every Day Smoker Substance Use Type: Non Opiate Pain - Medications Home Medications: Home Medications Medication Instructions Recorded Confirmed Last Taken Type oxyCODONE /ACETAMINOPHEN [Percocet 2 tab PO Q6H PRN #20 tablet 06/18/17 Unknown Rx 5/325 mg] Acetaminophen [Tylenol Arthritis] 650 mg PO Q6HR PRN #30 tablet.er 06/21/17 Unknown Rx oxyCODONE [Roxicodone] 5 mg PO Q6HR PRN #20 tablet 06/21/17 07/08/17 Unknown Rx ED Physical Exam - General Limitations: Language Barrier General appearance: alert, in no apparent distress - Head Head exam: Present: atraumatic, normocephalic - Eye Eye exam: Present: normal appearance, PERRL, EOMI - ENT ENT exam: Present: mucous membranes moist - Neck Neck exam: Present: normal inspection, full ROM - Respiratory Respiratory exam: Present: normal lung sounds bilaterally. Absent: respiratory distress - Cardiovascular Cardiovascular Exam: Present: regular rate, normal rhythm. Absent: systolic murmur, diastolic murmur, rubs, gallop - GI/Abdominal GI/Abdominal exam: Present: tenderness (lower abdominal tenderness), normal bowel sounds - Rectal Rectal exam: Present: deferred - Extremities Exam Extremities exam: Present: normal inspection - Back Exam Back exam: Present: normal inspection - Neurological Exam Neurological exam: Present: alert, oriented X3, CN II-XII intact, normal gait - Psychiatric Psychiatric exam: Present: normal affect, normal mood - Skin Skin exam: Present: warm, dry, intact, normal color. Absent: rash ED Course Vital Signs 07/08/17 07/08/17 07/08/17 07:41 11:05 12:20 Temperature 98.3 F Pulse Rate 90 Respiratory 18 16 18 Rate Blood Pressure 124/74 Blood Pressure [Left] O2 Sat by Pulse 98 Oximetry 07/08/17 07/08/17 16:54 16:56 Temperature Pulse Rate 84 Respiratory 16 18 Rate Blood Pressure Blood Pressure 126/71 [Left] O2 Sat by Pulse 98 98 Oximetry ED Medical Decision Making - Lab Data Result diagrams: 07/08/17 07:52 07/08/17 07:52 - Medical Decision Making A/P: Postoperative abdominal pain, constipation, 1-case was discussed with Dr. Isaacs ED attending 2-I informed the patient's surgeon of his clinical scenario. Dr. Tan states she'll see patient in the hospital tomorrow morning 3-I consulted Dr. Payne hospitalist for admission for IV antibiotics pending surgical consultation. Nothing by mouth for now 4-patient agrees with clinical plan Critical care attestation.: If time is entered above; I have spent that time in minutes in the direct care of this critically ill patient, excluding procedure time. ED Disposition Clinical Impression: Abdominal pain Qualifiers: Abdominal location: left lower quadrant Qualified Code(s): R10.32 - Left lower quadrant pain Disposition: DC-01 TO HOME OR SELFCARE Is pt being admited?: Yes Does the pt Need Aspirin: No Condition: Stable Referrals: PRIMARY CARE, [Primary Care Provider] - 3-5 Days
[2017-07-08] MEDS ORDERED: MORPHINE IV ONE (12:13)
[2017-07-08] MEDS ORDERED: ZOFRAN IV ONE (12:13)
[2017-07-08] MEDS ORDERED: NACL ONE (13:50)
--- NOTE | 2017-07-08 15:32 | Cat Scan Report ---
FINAL REPORT EXAM: CT ABDOMEN PELVIS W CON HISTORY: s/p appendectomy no BMs 5 days ? SBO TECHNIQUE: CT abdomen and pelvis performed. Images extend from diaphragm to pubic symphysis. High 100 cc Omnipaque 300 IV was administered. Oral contrast was administered. Coronal and sagittal reformatted images were obtained. PRIORS: None. FINDINGS: The visualized aspects of the lung bases are clear. The visualized liver, spleen, pancreas, adrenal glands and kidneys demonstrate no significant abnormalities. There is no abdominal aortic aneurysm. There is no evidence of intestinal obstruction. Patient is status post appendectomy. There is abnormal wall thickening involving the sigmoid colon. There is surrounding prominent inflammatory change. This is likely acute diverticulitis involving the distal sigmoid colon. There is any elongated fluid collection anterior to the sigmoid measuring approximately 4.2 x 1.4 by 2.0 cm. This is worrisome for an abscess. There is no extraluminal gas. There is no free air in the upper abdomen. The bladder is unremarkable. IMPRESSION: There is wall thickening and prominent inflammatory change the sigmoid colon. There is a 4.2 x 1.4 x 2.0 cm elongated small fluid collection anterior to the sigmoid which is concerning for abscess. Findings are probably on the basis of acute diverticulitis. No extraluminal gas/free air seen.
[2017-07-08] MEDS ORDERED: TYLENOL PO PRN (16:07)
[2017-07-08] MEDS ORDERED: MILK OF MAGNESIA PO PRN (16:07)
[2017-07-08] MEDS ORDERED: ZOFRAN IV PRN (16:07)
[2017-07-08] MEDS ORDERED: PROVENTIL IH PRN (16:07)
[2017-07-08] MEDS ORDERED: MORPHINE IV PRN (16:07)
[2017-07-08] MEDS ORDERED: DULCOLAX PR PRN (16:07)
--- NOTE | 2017-07-08 16:09 | History and Physical Report ---
History of Present Illness Chief complaint: My stomach hurts History of present illness: 41 YO Male with Nicotine Dependence presents to ED for evaluation. Pt states that he has experienced pain in he abdomen over the past 5 days with worsening symptoms over the past 2 days. Pain is 6/10, Localized to the mid-lower abdomen , pain with defecation. Pt denies fever, chills, CP, Palpitations, NVD, BRBPR, trauma, recent ill contacts, ingestion of food/water from new or different sources. Pt seen and evaluated in ED and found to be in distress. Pt underwent CT abdomen/Pelvis which showed evidence of diverticulitis with concomitant abscess. Surgery team consulted in ED. IT consulted as per surgical request. Pt admitted to hospital medicine service. Past History Past Medical History: other (Nicotine Dependence) Past Surgical History: appendectomy Social history: , lives with family, smoking. denies: alcohol abuse, prescription drug abuse, IV drug use Family history: no significant family history (reviewed) Medications and Allergies Allergies Allergy/AdvReac Type Severity Reaction Status Date / Time No Known Allergies Allergy Verified 06/21/17 08:42 Home Medications Medication Instructions Recorded Confirmed Last Taken Type oxyCODONE /ACETAMINOPHEN [Percocet 2 tab PO Q6H PRN #20 tablet 06/18/17 Unknown Rx 5/325 mg] Acetaminophen [Tylenol Arthritis] 650 mg PO Q6HR PRN #30 tablet.er 06/21/17 Unknown Rx oxyCODONE [Roxicodone] 5 mg PO Q6HR PRN #20 tablet 06/21/17 Unknown Rx Review of Systems Constitutional: no weight loss, no weight gain, no fever, no chills, no sweats Ears, nose, mouth and throat: no ear pain, no ear discharge, no tinnitis, no decreased hearing, no nose pain, no nasal congestion, no nasal discharge Cardiovascular: no chest pain, no orthopnea, no palpitations, no rapid/ irregular heart beat, no edema, no syncope Respiratory: no cough, no cough with sputum, no excessive sputum, no hemoptysis , no shortness of breath Gastrointestinal: abdominal pain, no nausea, no vomiting, no diarrhea, no hematemesis, no coffee ground emesis, no BRBPR, no melena, no hematochezia, no loss of appetite, no early satiety Genitourinary Male: no hematuria, no flank pain, no discharge, no urinary frequency, no urinary hesitancy, no nocturia Rectal: no pain, no incontinence, no bleeding Musculoskeletal: no neck stiffness, no neck pain, no shooting arm pain, no arm numbness/tingling, no low back pain Integumentary: no rash, no pruritis, no redness, no sores, no wounds, no jaundice Neurological: no paralysis, no weakness, no parathesias, no numbness, no tingling, no seizures Psychiatric: no anxiety, no memory loss, no change in sleep habits, no sleep disturbances, no insomnia, no hypersomnia, no change in appetite, no change in libido Endocrine: no cold intolerance, no heat intolerance, no polyphagia, no excessive thirst, no polydipsia, no polyuria, no nocturia Hematologic/Lymphatic: no easy bruising, no easy bleeding Allergic/Immunologic: no urticaria, no allergic rhinitis, no wheezing Exam - Constitutional Vitals: Temp Pulse Resp BP Pulse Ox 98.3 F 90 18 124/74 98 07/08/17 07:41 07/08/17 07:41 07/08/17 12:20 07/08/17 07:41 07/08/17 07:41 General appearance: Present: mild distress - EENT Eyes: Present: PERRL ENT: hearing intact, clear oral mucosa - Neck Neck: Present: supple, normal ROM - Respiratory Respiratory effort: normal Respiratory: bilateral: CTA - Cardiovascular Heart Sounds: Present: S1 & S2. Absent: rub, click - Extremities Extremities: pulses symmetrical, No edema Peripheral Pulses: within normal limits - Abdominal General gastrointestinal: Present: soft, tender, hypoactive bowel sounds. Absent: hepatomegaly, splenomegaly, mass, hernia Localized gastrointestinal: tender: LLQ, guarding: LLQ, rebound: LLQ Male genitourinary: Present: normal - Rectal Rectal Exam: normal exam-external/orifice - Integumentary Integumentary: Present: clear, warm, dry - Musculoskeletal Musculoskeletal: gait normal, strength equal bilaterally - Psychiatric Psychiatric: appropriate mood/affect, intact judgment & insight - Neurologic Neurologic: CNII-XII intact, moves all extremities Results - Labs CBC & Chem 7: 07/08/17 07:52 07/08/17 07:52 Labs: Abnormal lab results 12/24/17 12/24/17 Range/Units 07:52 07:52 WBC 12.4 H (4.5-11.0) K/mm3 Hct 35.1 L (35.5-45.6) % RDW 13.0 L (13.2-15.2) % [place] % (Auto) 9.3 H (0.0-7.3) % [place] # 1.2 H (0.0-0.8) K/mm3 Seg Neutrophils % 74.3 H (40.0-70.0) % Seg Neutrophils # 9.2 H (1.8-7.7) K/mm3 Sodium 135 L (137-145) mmol/L Chloride 92.4 L (98-107) mmol/L Creatinine 0.7 L (0.8-1.5) mg/dL Glucose 105 H (75-100) mg/dL Albumin 3.6 L (3.9-5) g/dL Assessment and Plan - Patient Problems (1) Acute diverticulitis Current Visit: Yes Status: Acute Plan to address problem: IV abx, IVF, supportive care, bowel rest, Surgery consulted, serial abdominal exam. (2) Abdominal pain Current Visit: Yes Status: Acute Plan to address problem: Pain control, IV morphine prn, bowel rest, (3) Abdominal abscess Current Visit: Yes Status: Acute Plan to address problem: IR consulted, Surgery consulted in ED, IV abx, bowel rest, CT abdomen pelvis (4) DVT prophylaxis Current Visit: Yes Status: Acute
[2017-07-08] MEDS: NACL 0.45% 1000 ML 1,000 ML IV SCH (18:52)
[2017-07-09] MEDS: NACL 0.45% 1000 ML 1,000 ML IV SCH ×2 (04:34→17:35)
[2017-07-09 05:23] LABS: Basophils % (Auto) 0.6 % (0.0-1.8); Eosinophils # (Auto) 0.1 K/mm3 (0.0-0.4); Eosinophils % (Auto) 2.3 % (0.0-4.3); Hematocrit 35.3 % (35.5-45.6); Hemoglobin 11.6 gm/dl (11.8-15.2); Lymphocytes # (Auto) 1.2 K/mm3 (1.2-5.4); Lymphocytes % (Auto) 20.6 % (13.4-35.0); Mean Corpuscular HGB Conc 33 % (32-34); Mean Corpuscular Hemoglobin 29 pg (28-32); Mean Corpuscular Volume 88 fl (84-94); Monocytes # (Auto) 0.8 K/mm3 (0.0-0.8); Monocytes % (Auto) 12.8 % (0.0-7.3); Platelet Count 388 K/mm3 (140-440); Red Cell Distribution Width 13.3 % (13.2-15.2)
--- NOTE | 2017-07-09 09:27 | Progress Note ---
Assessment and Plan Assessment and plan: Acute diverticulitis IV abx, IVF, supportive care, bowel rest, Surgery consulted, serial abdominal exam. Abdominal pain Pain control, IV morphine prn, bowel rest, Abdominal abscess IR consulted, Surgery consulted in ED, IV abx, bowel rest, DVT prophylaxis Lovenox daily History Interval history: c/o abd pain Hospitalist Physical - Constitutional Vitals: Temp Pulse Resp BP Pulse Ox 98.2 F 69 19 125/75 98 07/09/17 07:39 07/09/17 07:39 07/09/17 07:39 07/09/17 07:39 07/09/17 07:39 General appearance: Present: no acute distress - EENT Eyes: Present: PERRL, EOM intact ENT: hearing intact, clear oral mucosa, dentition normal - Neck Neck: Present: supple, normal ROM - Respiratory Respiratory effort: normal Respiratory: bilateral: CTA - Cardiovascular Rhythm: regular Heart Sounds: Present: S1 & S2. Absent: gallop, rub - Extremities Extremities: no ischemia, No edema, Full ROM - Abdominal General gastrointestinal: soft, non-tender, non-distended, normal bowel sounds - Integumentary Integumentary: Present: clear, warm, dry - Neurologic Neurologic: CNII-XII intact, moves all extremities Results - Labs CBC & Chem 7: 07/09/17 04:47 07/08/17 07:52 Labs: Laboratory Last Values WBC 6.0 K/mm3 (4.5-11.0) 07/09/17 04:47 RBC 4.00 M/mm3 (3.65-5.03) 07/09/17 04:47 Hgb 11.6 gm/dl (11.8-15.2) L 07/09/17 04:47 Hct 35.3 % (35.5-45.6) L 07/09/17 04:47 MCV 88 fl (84-94) 07/09/17 04:47 MCH 29 pg (28-32) 07/09/17 04:47 MCHC 33 % (32-34) 07/09/17 04:47 RDW 13.3 % (13.2-15.2) 07/09/17 04:47 Plt Count 388 K/mm3 (140-440) 07/09/17 04:47 Lymph % (Auto) 20.6 % (13.4-35.0) 07/09/17 04:47 [place] % (Auto) 12.8 % (0.0-7.3) H 07/09/17 04:47 Eos % (Auto) 2.3 % (0.0-4.3) 07/09/17 04:47 Baso % (Auto) 0.6 % (0.0-1.8) 07/09/17 04:47 Lymph # 1.2 K/mm3 (1.2-5.4) 07/09/17 04:47 [place] # 0.8 K/mm3 (0.0-0.8) 07/09/17 04:47 Eos # 0.1 K/mm3 (0.0-0.4) 07/09/17 04:47 Baso # 0.0 K/mm3 (0.0-0.1) 07/09/17 04:47 Seg Neutrophils % 63.7 % (40.0-70.0) 07/09/17 04:47 Seg Neutrophils # 3.8 K/mm3 (1.8-7.7) 07/09/17 04:47 Sodium 135 mmol/L (137-145) L 07/08/17 07:52 Potassium 4.5 mmol/L (3.6-5.0) 07/08/17 07:52 Chloride 92.4 mmol/L (98-107) L 07/08/17 07:52 Carbon Dioxide 27 mmol/L (22-30) 07/08/17 07:52 Anion Gap 20 mmol/L 07/08/17 07:52 BUN 11 mg/dL (9-20) 07/08/17 07:52 Creatinine 0.7 mg/dL (0.8-1.5) L 07/08/17 07:52 Estimated GFR > 60 ml/min 07/08/17 07:52 BUN/Creatinine Ratio 16 % 07/08/17 07:52 Glucose 105 mg/dL (75-100) H 07/08/17 07:52 Lactic Acid 0.90 mmol/L (0.7-2.0) 07/08/17 12:10 Calcium 9.3 mg/dL (8.4-10.2) 07/08/17 07:52 Total Bilirubin 0.40 mg/dL (0.1-1.2) 07/08/17 07:52 AST 28 units/L (5-40) 07/08/17 07:52 ALT 56 units/L (7-56) 07/08/17 07:52 Alkaline Phosphatase 86 units/L (35-129) 07/08/17 07:52 Total Protein 8.0 g/dL (6.3-8.2) 07/08/17 07:52 Albumin 3.6 g/dL (3.9-5) L 07/08/17 07:52 Albumin/Globulin Ratio 0.8 % 07/08/17 07:52 Lipase 18 units/L (13-60) 07/08/17 07:52 Urine Color Yellow (Yellow) 07/08/17 08:32 Urine Turbidity Clear (Clear) 07/08/17 08:32 Urine pH 6.0 (5.0-7.0) 07/08/17 08:32 Ur Specific [place] 1.015 (1.003-1.030) 07/08/17 08:32 Urine Protein <15 mg/dl mg/dL (Negative) 07/08/17 08:32 Urine Glucose (UA) Neg mg/dL (Negative) 07/08/17 08:32 Urine Ketones Neg mg/dL (Negative) 07/08/17 08:32 Urine Blood Mod (Negative) 07/08/17 08:32 Urine Nitrite Neg (Negative) 07/08/17 08:32 Urine Bilirubin Neg (Negative) 07/08/17 08:32 Urine Urobilinogen 2.0 mg/dL (<2.0) 07/08/17 08:32 Ur Leukocyte Esterase Neg (Negative) 07/08/17 08:32 Urine WBC (Auto) 1.0 /HPF (0.0-6.0) 07/08/17 08:32 Urine RBC (Auto) 6.0 /HPF (0.0-6.0) 07/08/17 08:32 U Epithel Cells (Auto) < 1.0 /HPF (0-13.0) 07/08/17 08:32 Urine Mucus Few /HPF 07/08/17 08:32
[2017-07-09] MEDS: FLAGYL 500 MG/100 ML 500 MG/100 ML BAG IV SCH ×2 (10:00→17:32)
--- NOTE | 2017-07-09 11:27 | Event Note ---
Date: 07/09/[address] scan. The pelvic abscess is not amenable to percutaneous drainage at this time. Recommend antibiotics and re-evaluation.
[2017-07-09] MEDS: LEVAQUIN 750MG/150ML 750 MG/150 ML BAG IV SCH (11:45)
--- NOTE | 2017-07-09 11:55 | Consultation ---
History of Present Illness Consult date: 07/09/17 Chief complaint: abd pain - History of present illness History of present illness: 41 yo M s/p laparoscopic appendectomy on 06/17/17 who presents to the ER with c/ o lower abdominal pain and constipation. The pain has gradually gotten worse, is localized to the left lower quadrant and does not radiate. It has been ongoing for 3 days. It is associated with constipation. No f/c, cp, sob, n/v. He has been tolerating a regular diet. He has never had a colonoscopy. After Ct scan yesterday patient did have a watery bowel movement. No hematochezia or melena. Past History Past Medical History: other (Nicotine Dependence) Past Surgical History: appendectomy Social history: , lives with family, smoking. denies: alcohol abuse, prescription drug abuse, IV drug use Family history: no significant family history (reviewed) Medications and Allergies Allergies Allergy/AdvReac Type Severity Reaction Status Date / Time No Known Allergies Allergy Verified 06/21/17 08:42 Home Medications Medication Instructions Recorded Confirmed Last Taken Type oxyCODONE /ACETAMINOPHEN [Percocet 2 tab PO Q6H PRN #20 tablet 06/18/17 Unknown Rx 5/325 mg] Acetaminophen [Tylenol Arthritis] 650 mg PO Q6HR PRN #30 tablet.er 06/21/17 Unknown Rx oxyCODONE [Roxicodone] 5 mg PO Q6HR PRN #20 tablet 06/21/17 07/08/17 Unknown Rx Active Meds: Active Medications Acetaminophen (Tylenol) 650 mg PO Q4H PRN PRN Reason: Pain MILD(1-3)/Fever >100.5/LIND Albuterol (Proventil) 2.5 mg IH Q4HRT PRN PRN Reason: Shortness Of Breath Bisacodyl (Dulcolax) [address] QDAY PRN PRN Reason: Constipation unrelieved by MOM Enoxaparin Sodium (Lovenox) 40 mg SUB-Q QDAY@2200 CHARLEE Sodium Chloride (Nacl 0.45% 1000 Ml) 1,000 mls @ 100 mls/hr IV DIRECT CHARLEE Last Admin: 07/09/17 04:34 Dose: 100 mls/hr Levofloxacin/Dextrose (Levaquin 750mg/150ml) 750 mg in 150 mls @ 100 mls/hr IV Q24HR [facility] PRN Reason: Protocol Last Admin: 07/09/17 11:45 Dose: 100 mls/hr Metronidazole (Flagyl 500 Mg/100 Ml) 500 mg in 100 mls @ 100 mls/hr IV Q8H [facility] Last Admin: 07/09/17 10:00 Dose: 100 mls/hr Magnesium Hydroxide (Milk Of Magnesia) 30 ml PO Q4H PRN PRN Reason: Constipation Morphine Sulfate (Morphine) 2 mg IV Q4H PRN PRN Reason: Pain, Moderate (4-6) Ondansetron HCl (Zofran) 4 mg IV Q8H PRN PRN Reason: N/V unrelieved by Reglan Review of Systems All systems: negative (see hpi) Exam Vital Signs Temp Pulse Resp BP Pulse Ox 98.3 F 90 18 124/74 98 07/08/17 07:41 07/08/17 07:41 07/08/17 07:41 07/08/17 07:41 07/08/17 07:41 Narrative exam: Gen: AAOx3. NAD CV: S1, S2+ Resp: No audible wheezes Abd: soft, ND, +TTP LLQ and suprapubic area. NO r/r/g. surgical incisions healed well. Ext: No c/c/e Results - Labs 07/09/17 04:47 07/08/17 07:52 Abnormal lab results 07/09/17 Range/Units 04:47 Hgb 11.6 L (11.8-15.2) gm/dl Hct 35.3 L (35.5-45.6) % [place] % (Auto) 12.8 H (0.0-7.3) % - Imaging CT scan - abdomen: report reviewed, image reviewed CT scan - pelvis: report reviewed, image reviewed Assessment and Plan 41 yo M with 1. intraabdominal abscess likely postop from laparoscopic appendectomy for necrotizing appendicitis 2. sepsis 2/2 #1 Plan: 1. IV abx - levaquin and flagyl 2. serial abdominal exams 3. DVT ppx 4. bowel rest 5. IVF 6. repeat labs in am 7. pain and nausea control 8. IR consult - discussed case with Dr. Lim and reviewed CT scan images. The inflammation in the pelvis is mostly phlegmonous with a small organized collection. Will be difficult to access the collection at this time secondary to inflammation. Recommends abx and reevaluation. D/W Dr. Espinoza
[2017-07-09] MEDS: LOVENOX SUB-Q SCH (21:21)
[2017-07-10] MEDS: FLAGYL 500 MG/100 ML 500 MG/100 ML BAG IV SCH ×3 (02:02→18:15)
[2017-07-10 05:04] LABS: Basophils # (Auto) 0.1 K/mm3 (0.0-0.1); Eosinophils # (Auto) 0.2 K/mm3 (0.0-0.4); Eosinophils % (Auto) 3.9 % (0.0-4.3); Hematocrit 35.5 % (35.5-45.6); Hemoglobin 12.1 gm/dl (11.8-15.2); Lymphocytes # (Auto) 1.7 K/mm3 (1.2-5.4); Lymphocytes % (Auto) 34.5 % (13.4-35.0); Mean Corpuscular HGB Conc 34 % (32-34); Mean Corpuscular Hemoglobin 30 pg (28-32); Mean Corpuscular Volume 88 fl (84-94); Monocytes # (Auto) 0.6 K/mm3 (0.0-0.8); Monocytes % (Auto) 12.5 % (0.0-7.3); Platelet Count 378 K/mm3 (140-440); Red Blood Count 4.05 M/mm3 (3.65-5.03)
[2017-07-10 05:26] LABS: BUN/Creatinine Ratio 17; Blood Urea Nitrogen 12 mg/dL (9-20); Calcium 8.8 mg/dL (8.4-10.2); Hemolysis Index 3
[2017-07-10] MEDS: NACL 0.45% 1000 ML 1,000 ML IV SCH (05:57)
[2017-07-10] MEDS: LEVAQUIN 750MG/150ML 750 MG/150 ML BAG IV SCH (09:10)
--- NOTE | 2017-07-10 10:21 | Progress Note ---
Assessment and Plan 41 yo M with 1. intraabdominal abscess likely postop from laparoscopic appendectomy for necrotizing appendicitis 2. sepsis 2/2 #1 Plan: 1. WBC count normal, c/w IV abx - levaquin and flagyl 2. serial abdominal exams 3. DVT ppx 4. adv to clear liquid diet 5. IVF - change to maintenance 6. pain and nausea control Subjective Date of service: 07/10/17 Narrative: Pt seen and examined. States abdominal pain is much improved. No n/v, f/c. He had a loose BM this am. He feels hungry. Objective Vital Signs - 12hr 07/10/17 07/10/17 07:44 09:02 Temperature 98.0 F Pulse Rate 68 Respiratory 18 Rate Blood Pressure 126/71 O2 Sat by Pulse 98 99 Oximetry - General physical appearance Narrative Exam: Gen: AAOx3. NAD CV: S1, S2+ Resp: No audible wheezes Abd: soft, NT, ND. no r/r/g Ext: no c/c/e - Labs 07/10/17 04:50 07/10/17 04:50 Diabetes panel 07/10/17 Range/Units 04:50 Sodium 138 (137-145) mmol/L Potassium 4.0 (3.6-5.0) mmol/L Chloride 96.2 L (98-107) mmol/L Carbon Dioxide 23 (22-30) mmol/L BUN 12 (9-20) mg/dL Creatinine 0.7 L (0.8-1.5) mg/dL Glucose 74 L (75-100) mg/dL Calcium 8.8 (8.4-10.2) mg/dL Calcium panel 07/10/17 Range/Units 04:50 Calcium 8.8 (8.4-10.2) mg/dL Pituitary panel 07/10/17 Range/Units 04:50 Sodium 138 (137-145) mmol/L Potassium 4.0 (3.6-5.0) mmol/L Chloride 96.2 L (98-107) mmol/L Carbon Dioxide 23 (22-30) mmol/L BUN 12 (9-20) mg/dL Creatinine 0.7 L (0.8-1.5) mg/dL Glucose 74 L (75-100) mg/dL Calcium 8.8 (8.4-10.2) mg/dL Adrenal panel 07/10/17 Range/Units 04:50 Sodium 138 (137-145) mmol/L Potassium 4.0 (3.6-5.0) mmol/L Chloride 96.2 L (98-107) mmol/L Carbon Dioxide 23 (22-30) mmol/L BUN 12 (9-20) mg/dL Creatinine 0.7 L (0.8-1.5) mg/dL Glucose 74 L (75-100) mg/dL Calcium 8.8 (8.4-10.2) mg/dL
--- NOTE | 2017-07-10 10:43 | Progress Note ---
Assessment and Plan Assessment and plan: Intra-abdominal abscess Etiology , likely postop from laparoscopic appendectomy for necrotizing appendicitis. IR feels that the pelvic abscess is not amenable to percutaneous drainage at this time. Surgery following. Advance diet as tolerated. Abdominal pain Pain control, IV morphine prn, bowel rest, Sepsis Present on admission. Continue IV antibiotics and monitor WBC. DVT prophylaxis Lovenox daily History Interval history: c/o abd pain Hospitalist Physical - Constitutional Vitals: Temp Pulse Resp BP Pulse Ox 98.0 F 68 18 126/71 99 07/10/17 07:44 07/10/17 07:44 07/10/17 07:44 07/10/17 07:44 07/10/17 09:02 General appearance: Present: no acute distress - EENT Eyes: Present: PERRL, EOM intact ENT: hearing intact, clear oral mucosa, dentition normal - Neck Neck: Present: supple, normal ROM - Respiratory Respiratory effort: normal Respiratory: bilateral: CTA - Cardiovascular Rhythm: regular Heart Sounds: Present: S1 & S2. Absent: gallop, rub - Extremities Extremities: no ischemia, No edema, Full ROM - Abdominal General gastrointestinal: soft, non-tender, non-distended, normal bowel sounds - Integumentary Integumentary: Present: clear, warm, dry - Neurologic Neurologic: CNII-XII intact, moves all extremities Results - Labs CBC & Chem 7: 07/10/17 04:50 07/10/17 04:50 Labs: Laboratory Last Values WBC 5.1 K/mm3 (4.5-11.0) 07/10/17 04:50 RBC 4.05 M/mm3 (3.65-5.03) 07/10/17 04:50 Hgb 12.1 gm/dl (11.8-15.2) 07/10/17 04:50 Hct 35.5 % (35.5-45.6) 07/10/17 04:50 MCV 88 fl (84-94) 07/10/17 04:50 MCH 30 pg (28-32) 07/10/17 04:50 MCHC 34 % (32-34) 07/10/17 04:50 RDW 13.0 % (13.2-15.2) L 07/10/17 04:50 Plt Count 378 K/mm3 (140-440) 07/10/17 04:50 Lymph % (Auto) 34.5 % (13.4-35.0) 07/10/17 04:50 [place] % (Auto) 12.5 % (0.0-7.3) H 07/10/17 04:50 Eos % (Auto) 3.9 % (0.0-4.3) 07/10/17 04:50 Baso % (Auto) 1.0 % (0.0-1.8) 07/10/17 04:50 Lymph # 1.7 K/mm3 (1.2-5.4) 07/10/17 04:50 [place] # 0.6 K/mm3 (0.0-0.8) 07/10/17 04:50 Eos # 0.2 K/mm3 (0.0-0.4) 07/10/17 04:50 Baso # 0.1 K/mm3 (0.0-0.1) 07/10/17 04:50 Seg Neutrophils % 48.1 % (40.0-70.0) 07/10/17 04:50 Seg Neutrophils # 2.4 K/mm3 (1.8-7.7) 07/10/17 04:50 Sodium 138 mmol/L (137-145) 07/10/17 04:50 Potassium 4.0 mmol/L (3.6-5.0) 07/10/17 04:50 Chloride 96.2 mmol/L (98-107) L 07/10/17 04:50 Carbon Dioxide 23 mmol/L (22-30) 07/10/17 04:50 Anion Gap 23 mmol/L 07/10/17 04:50 BUN 12 mg/dL (9-20) 07/10/17 04:50 Creatinine 0.7 mg/dL (0.8-1.5) L 07/10/17 04:50 Estimated GFR > 60 ml/min 07/10/17 04:50 BUN/Creatinine Ratio 17 % 07/10/17 04:50 Glucose 74 mg/dL (75-100) L 07/10/17 04:50 Lactic Acid 0.90 mmol/L (0.7-2.0) 07/08/17 12:10 Calcium 8.8 mg/dL (8.4-10.2) 07/10/17 04:50 Total Bilirubin 0.40 mg/dL (0.1-1.2) 07/08/17 07:52 AST 28 units/L (5-40) 07/08/17 07:52 ALT 56 units/L (7-56) 07/08/17 07:52 Alkaline Phosphatase 86 units/L (35-129) 07/08/17 07:52 C-Reactive Protein 6.70 mg/dL (0.00-1.30) H 07/10/17 04:50 Total Protein 8.0 g/dL (6.3-8.2) 07/08/17 07:52 Albumin 3.6 g/dL (3.9-5) L 07/08/17 07:52 Albumin/Globulin Ratio 0.8 % 07/08/17 07:52 Lipase 18 units/L (13-60) 07/08/17 07:52 Urine Color Yellow (Yellow) 07/08/17 08:32 Urine Turbidity Clear (Clear) 07/08/17 08:32 Urine pH 6.0 (5.0-7.0) 07/08/17 08:32 Ur Specific [place] 1.015 (1.003-1.030) 07/08/17 08:32 Urine Protein <15 mg/dl mg/dL (Negative) 07/08/17 08:32 Urine Glucose (UA) Neg mg/dL (Negative) 07/08/17 08:32 Urine Ketones Neg mg/dL (Negative) 07/08/17 08:32 Urine Blood Mod (Negative) 07/08/17 08:32 Urine Nitrite Neg (Negative) 07/08/17 08:32 Urine Bilirubin Neg (Negative) 07/08/17 08:32 Urine Urobilinogen 2.0 mg/dL (<2.0) 07/08/17 08:32 Ur Leukocyte Esterase Neg (Negative) 07/08/17 08:32 Urine WBC (Auto) 1.0 /HPF (0.0-6.0) 07/08/17 08:32 Urine RBC (Auto) 6.0 /HPF (0.0-6.0) 07/08/17 08:32 U Epithel Cells (Auto) < 1.0 /HPF (0-13.0) 07/08/17 08:32 Urine Mucus Few /HPF 07/08/17 08:32
[2017-07-10] MEDS: D5/0.45NS 1,000 ML IV SCH (15:33)
[2017-07-10] MEDS: LOVENOX SUB-Q SCH (21:44)
[2017-07-11] MEDS: FLAGYL 500 MG/100 ML 500 MG/100 ML BAG IV SCH ×3 (02:30→18:32)
[2017-07-11 05:27] LABS: Basophils % (Auto) 0.9 % (0.0-1.8); Eosinophils # (Auto) 0.2 K/mm3 (0.0-0.4); Eosinophils % (Auto) 4.7 % (0.0-4.3); Hematocrit 34.6 % (35.5-45.6); Mean Corpuscular HGB Conc 35 % (32-34); Mean Corpuscular Hemoglobin 30 pg (28-32); Mean Corpuscular Volume 87 fl (84-94); Monocytes # (Auto) 0.5 K/mm3 (0.0-0.8); Monocytes % (Auto) 10.2 % (0.0-7.3); Platelet Count 376 K/mm3 (140-440); Red Blood Count 3.99 M/mm3 (3.65-5.03); Red Cell Distribution Width 12.8 % (13.2-15.2)
[2017-07-11 05:50] LABS: BUN/Creatinine Ratio 11; Blood Urea Nitrogen 9 mg/dL (9-20); Calcium 8.6 mg/dL (8.4-10.2); Hemolysis Index 5
[2017-07-11] MEDS ORDERED: K-DUR PO ONE (09:00)
--- NOTE | 2017-07-11 09:47 | Progress Note ---
Assessment and Plan Assessment and plan: Intra-abdominal abscess Etiology , likely postop from laparoscopic appendectomy for necrotizing appendicitis. IR feels that the pelvic abscess is not amenable to percutaneous drainage at this time. Surgery following. Advance diet as tolerated. Abdominal pain Pain control Sepsis Present on admission. Continue IV antibiotics and monitor WBC. DVT prophylaxis Lovenox daily History Interval history: c/o minimal abd pain Hospitalist Physical - Constitutional Vitals: Temp Pulse Resp BP Pulse Ox 98.5 F 69 20 121/80 98 07/11/17 07:57 07/11/17 07:57 07/11/17 07:57 07/11/17 07:57 07/11/17 07:57 General appearance: Present: no acute distress - EENT Eyes: Present: PERRL, EOM intact ENT: hearing intact, clear oral mucosa, dentition normal - Neck Neck: Present: supple, normal ROM - Respiratory Respiratory effort: normal Respiratory: bilateral: CTA - Cardiovascular Rhythm: regular Heart Sounds: Present: S1 & S2. Absent: gallop, rub - Extremities Extremities: no ischemia, No edema, Full ROM - Abdominal General gastrointestinal: soft, tender, non-distended, normal bowel sounds Localized gastrointestinal: tender: LLQ (mild) - Integumentary Integumentary: Present: clear, warm, dry - Neurologic Neurologic: CNII-XII intact, moves all extremities Results - Labs CBC & Chem 7: 07/11/17 04:44 07/11/17 04:44 Labs: Laboratory Last Values WBC 5.1 K/mm3 (4.5-11.0) 07/11/17 04:44 RBC 3.99 M/mm3 (3.65-5.03) 07/11/17 04:44 Hgb 12.0 gm/dl (11.8-15.2) 07/11/17 04:44 Hct 34.6 % (35.5-45.6) L 07/11/17 04:44 MCV 87 fl (84-94) 07/11/17 04:44 MCH 30 pg (28-32) 07/11/17 04:44 MCHC 35 % (32-34) H 07/11/17 04:44 RDW 12.8 % (13.2-15.2) L 07/11/17 04:44 Plt Count 376 K/mm3 (140-440) 07/11/17 04:44 Lymph % (Auto) 39.0 % (13.4-35.0) H 07/11/17 04:44 [place] % (Auto) 10.2 % (0.0-7.3) H 07/11/17 04:44 Eos % (Auto) 4.7 % (0.0-4.3) H 07/11/17 04:44 Baso % (Auto) 0.9 % (0.0-1.8) 07/11/17 04:44 Lymph # 2.0 K/mm3 (1.2-5.4) 07/11/17 04:44 [place] # 0.5 K/mm3 (0.0-0.8) 07/11/17 04:44 Eos # 0.2 K/mm3 (0.0-0.4) 07/11/17 04:44 Baso # 0.0 K/mm3 (0.0-0.1) 07/11/17 04:44 Seg Neutrophils % 45.2 % (40.0-70.0) 07/11/17 04:44 Seg Neutrophils # 2.3 K/mm3 (1.8-7.7) 07/11/17 04:44 Sodium 139 mmol/L (137-145) 07/11/17 04:44 Potassium 3.5 mmol/L (3.6-5.0) L 07/11/17 04:44 Chloride 99.3 mmol/L (98-107) 07/11/17 04:44 Carbon Dioxide 25 mmol/L (22-30) 07/11/17 04:44 Anion Gap 18 mmol/L 07/11/17 04:44 BUN 9 mg/dL (9-20) 07/11/17 04:44 Creatinine 0.8 mg/dL (0.8-1.5) 07/11/17 04:44 Estimated GFR > 60 ml/min 07/11/17 04:44 BUN/Creatinine Ratio 11 % 07/11/17 04:44 Glucose 98 mg/dL (75-100) 07/11/17 04:44 Lactic Acid 0.90 mmol/L (0.7-2.0) 07/08/17 12:10 Calcium 8.6 mg/dL (8.4-10.2) 07/11/17 04:44 Total Bilirubin 0.40 mg/dL (0.1-1.2) 07/08/17 07:52 AST 28 units/L (5-40) 07/08/17 07:52 ALT 56 units/L (7-56) 07/08/17 07:52 Alkaline Phosphatase 86 units/L (35-129) 07/08/17 07:52 C-Reactive Protein 6.70 mg/dL (0.00-1.30) H 07/10/17 04:50 Total Protein 8.0 g/dL (6.3-8.2) 07/08/17 07:52 Albumin 3.6 g/dL (3.9-5) L 07/08/17 07:52 Albumin/Globulin Ratio 0.8 % 07/08/17 07:52 Lipase 18 units/L (13-60) 07/08/17 07:52 Urine Color Yellow (Yellow) 07/08/17 08:32 Urine Turbidity Clear (Clear) 07/08/17 08:32 Urine pH 6.0 (5.0-7.0) 07/08/17 08:32 Ur Specific [place] 1.015 (1.003-1.030) 07/08/17 08:32 Urine Protein <15 mg/dl mg/dL (Negative) 07/08/17 08:32 Urine Glucose (UA) Neg mg/dL (Negative) 07/08/17 08:32 Urine Ketones Neg mg/dL (Negative) 07/08/17 08:32 Urine Blood Mod (Negative) 07/08/17 08:32 Urine Nitrite Neg (Negative) 07/08/17 08:32 Urine Bilirubin Neg (Negative) 07/08/17 08:32 Urine Urobilinogen 2.0 mg/dL (<2.0) 07/08/17 08:32 Ur Leukocyte Esterase Neg (Negative) 07/08/17 08:32 Urine WBC (Auto) 1.0 /HPF (0.0-6.0) 07/08/17 08:32 Urine RBC (Auto) 6.0 /HPF (0.0-6.0) 07/08/17 08:32 U Epithel Cells (Auto) < 1.0 /HPF (0-13.0) 07/08/17 08:32 Urine Mucus Few /HPF 07/08/17 08:32
--- NOTE | 2017-07-11 10:26 | Progress Note ---
Assessment and Plan 41 yo M with 1. intraabdominal abscess likely postop from laparoscopic appendectomy for necrotizing appendicitis 2. sepsis 2/2 #1 Plan: 1. WBC remains notmal, c/w IV abx - levaquin and flagyl 2. serial abdominal exams 3. DVT ppx 4. adv to full liquid diet 5. IVF - change to maintenance 6. pain and nausea control 7. replace K 8. NPO p MN 9. repeat CT A/P with oral/IV contrast in am 07/12 to reevaluate pelvic abscess 10. ok to shower Plan discussed with patient and his family at bedside and questions answered. Subjective Date of service: 07/11/17 Narrative: Pt seen and examined. No overnight events or acute complaints. Denies abdominal pain. Denies n/v. +loose BM x2 today, no hematochezia or melena. No f/c. Tolerated clear liquids Objective Vital Signs - 12hr 07/11/17 07:57 Temperature 98.5 F Pulse Rate 69 Respiratory 20 Rate Blood Pressure 121/80 O2 Sat by Pulse 98 Oximetry - General physical appearance Narrative Exam: Gen: AAOx3. NAD CV: S1, S2+ resp: No audible wheezes Abd: soft, NT, ND. no r/r/g Ext: no c/c/e - Labs 07/11/17 04:44 07/11/17 04:44 Diabetes panel 07/11/17 Range/Units 04:44 Sodium 139 (137-145) mmol/L Potassium 3.5 L (3.6-5.0) mmol/L Chloride 99.3 (98-107) mmol/L Carbon Dioxide 25 (22-30) mmol/L BUN 9 (9-20) mg/dL Creatinine 0.8 (0.8-1.5) mg/dL Glucose 98 (75-100) mg/dL Calcium 8.6 (8.4-10.2) mg/dL Calcium panel 07/11/17 Range/Units 04:44 Calcium 8.6 (8.4-10.2) mg/dL Pituitary panel 07/11/17 Range/Units 04:44 Sodium 139 (137-145) mmol/L Potassium 3.5 L (3.6-5.0) mmol/L Chloride 99.3 (98-107) mmol/L Carbon Dioxide 25 (22-30) mmol/L BUN 9 (9-20) mg/dL Creatinine 0.8 (0.8-1.5) mg/dL Glucose 98 (75-100) mg/dL Calcium 8.6 (8.4-10.2) mg/dL Adrenal panel 07/11/17 Range/Units 04:44 Sodium 139 (137-145) mmol/L Potassium 3.5 L (3.6-5.0) mmol/L Chloride 99.3 (98-107) mmol/L Carbon Dioxide 25 (22-30) mmol/L BUN 9 (9-20) mg/dL Creatinine 0.8 (0.8-1.5) mg/dL Glucose 98 (75-100) mg/dL Calcium 8.6 (8.4-10.2) mg/dL
[2017-07-11] MEDS: D5/0.45NS 1,000 ML IV SCH (10:43)
[2017-07-11] MEDS: LEVAQUIN 750MG/150ML 750 MG/150 ML BAG IV SCH (10:56)
[2017-07-11] MEDS: LOVENOX SUB-Q SCH (21:41)
[2017-07-12] MEDS: FLAGYL 500 MG/100 ML 500 MG/100 ML BAG IV SCH ×2 (01:30→11:06)
[2017-07-12 06:43] LABS: Basophils % (Auto) 0.6 % (0.0-1.8); Eosinophils # (Auto) 0.2 K/mm3 (0.0-0.4); Eosinophils % (Auto) 3.6 % (0.0-4.3); Hematocrit 37.3 % (35.5-45.6); Hemoglobin 12.7 gm/dl (11.8-15.2); Lymphocytes # (Auto) 1.9 K/mm3 (1.2-5.4); Lymphocytes % (Auto) 39.5 % (13.4-35.0); Mean Corpuscular HGB Conc 34 % (32-34); Mean Corpuscular Hemoglobin 30 pg (28-32); Mean Corpuscular Volume 88 fl (84-94); Monocytes # (Auto) 0.5 K/mm3 (0.0-0.8); Monocytes % (Auto) 9.8 % (0.0-7.3); Platelet Count 378 K/mm3 (140-440); Red Blood Count 4.26 M/mm3 (3.65-5.03); Red Cell Distribution Width 13.1 % (13.2-15.2)
[2017-07-12] MEDS: D5/0.45NS 1,000 ML IV SCH (06:43)
[2017-07-12 06:45] LABS: BUN/Creatinine Ratio 6; Blood Urea Nitrogen 5 mg/dL (9-20); Calcium 9.1 mg/dL (8.4-10.2); Hemolysis Index 2
[2017-07-12 08:17] VITALS: BP 111/69
--- NOTE | 2017-07-12 09:31 | Cat Scan Report ---
CT ABDOMEN PELVIS WITH CONTRAST: HISTORY: Followup pelvic abscess/phlegmon, abdominal pain, recent appendectomy. COMPARISON: 07/08/17. TECHNIQUE: Helical CT in 1.25mm intervals following IV contrast. Sagittal and coronal reconstructions. FINDINGS: Lung bases: Normal. Liver: Normal. Biliary system: Normal. Pancreas: Normal. Spleen: Normal. Kidneys/ureters/bladder: Normal. Adrenal glands: Normal. Aorta: Normal. Intestines: The moderate inflammatory changes involving the sigmoid colon has significantly improved since 07/08/17 exam. There is a least 50-75% improvement in the distal colitis. The previously described fluid collection anterior to the rectum has essentially resolved. Minor fat stranding remains in this area. No pelvic abscess is appreciated on today's exam. Appendix: Surgically removed. Ascites: None. Adenopathy: None. Musculoskeletal: Normal. IMPRESSION: Near resolution of the distal colitis and pelvic abscess since 07/08/17.
--- NOTE | 2017-07-12 09:43 | Progress Note ---
Assessment and Plan 41 yo M with 1. intraabdominal abscess likely postop from laparoscopic appendectomy for necrotizing appendicitis 2. sepsis 2/2 #1 Plan: 1. c/w IV abx 2. Ct scan reviewed - inflammation much improved with near resolution of abscess. 3. start Gi soft diet 4. dc IVF 5. DVT ppx 6. if patient does well with diet, may be discharged home this afternoon 7. dc with cipro and flagyl PO for 10 days 8. follow up in surgery clinic in [address] with patient. Dr. Espinoza made aware of plan. Subjective Date of service: 07/12/17 Narrative: Pt seen and examined. No n/v, f/c, cp, sob. Abd pain resolved. Objective Vital Signs - 12hr 07/11/17 07/12/17 22:38 07:29 Temperature 98.0 F 98.5 F Pulse Rate 58 L 67 Respiratory 17 18 Rate Blood Pressure 118/75 111/69 O2 Sat by Pulse 99 98 Oximetry - General physical appearance Narrative Exam: Gen: AAOx3. NAD Abd: soft, NT, ND. no r/r/g - Labs 07/12/17 05:32 07/12/17 05:32 Diabetes panel 07/12/17 Range/Units 05:32 Sodium 142 (137-145) mmol/L Potassium 4.4 D (3.6-5.0) mmol/L Chloride 101.9 (98-107) mmol/L Carbon Dioxide 26 (22-30) mmol/L BUN 5 L (9-20) mg/dL Creatinine 0.8 (0.8-1.5) mg/dL Glucose 113 H (75-100) mg/dL Calcium 9.1 (8.4-10.2) mg/dL Calcium panel 07/12/17 Range/Units 05:32 Calcium 9.1 (8.4-10.2) mg/dL Pituitary panel 07/12/17 Range/Units 05:32 Sodium 142 (137-145) mmol/L Potassium 4.4 D (3.6-5.0) mmol/L Chloride 101.9 (98-107) mmol/L Carbon Dioxide 26 (22-30) mmol/L BUN 5 L (9-20) mg/dL Creatinine 0.8 (0.8-1.5) mg/dL Glucose 113 H (75-100) mg/dL Calcium 9.1 (8.4-10.2) mg/dL Adrenal panel 07/12/17 Range/Units 05:32 Sodium 142 (137-145) mmol/L Potassium 4.4 D (3.6-5.0) mmol/L Chloride 101.9 (98-107) mmol/L Carbon Dioxide 26 (22-30) mmol/L BUN 5 L (9-20) mg/dL Creatinine 0.8 (0.8-1.5) mg/dL Glucose 113 H (75-100) mg/dL Calcium 9.1 (8.4-10.2) mg/dL - Imaging CT scan - abdomen: report reviewed, image reviewed (near resolution of distal colitis and pelvic abscess) CT scan - pelvis: report reviewed, image reviewed
[2017-07-12] MEDS: LEVAQUIN 750MG/150ML 750 MG/150 ML BAG IV SCH (11:06)
--- NOTE | 2017-07-12 11:36 | Discharge Summary ---
Providers - Providers Date of Admission: 07/08/17 16:07 Date of discharge: 07/12/17 Attending physician: ROBBIE RAYGOZA 07/09/17 10:53 Consult to Interventional Radiology [CONS] Routine Consulting Provider: MALISSA MORRISON Reason For Exam: pelvic abscess Place consult to:: DR. ADAME Notified:: DR. ADAME Phone number called:: IN HOUSE Was contact made?: Yes If yes, spoke with:: TO Comment:: MD TO CONSULT Primary care physician: TACO FARLEY Hospitalization Reason for admission: abd pain Condition: Stable Hospital course: 41 yo M s/p laparoscopic appendectomy on 06/17/17 who presented to the ER with c/ o lower abdominal pain and constipation. The pain gradually worsened and localized to the left lower quadrant lasting for 3 days. It was associated with constipation. No f/c, cp, sob, n/v. CT scan of the abdomen revealed wall thickening and prominent inflammatory changes in the sigmoid colon. There was a small fluid collection anterior to the sigmoid, concerning for abscess. The patient was seen by surgery consultation and IR. IR felt that the pelvic abscess was not amenable to percutaneous drainage at this time. The patient was treated with IV antibiotics and monitor conservatively. Patient had a repeat CT scan which showed near-complete resolution of the pelvic abscess. Patient's diet was advanced, which she tolerated well. Therefore, patient is felt to receive maximal hospital benefit. Dedicated discharge time 32 minutes. Disposition: DC-01 TO HOME OR SELFCARE Time spent for discharge: 32 - Discharge Diagnoses (1) Abdominal abscess Status: Acute (2) Abdominal pain Status: Acute Qualifiers: Abdominal location: left lower quadrant Qualified Code(s): R10.32 - Left lower quadrant pain Core Measure Documentation - Palliative Care Palliative Care/ Comfort Measures: Not Applicable - Core Measures Any of the following diagnoses?: none Exam - Constitutional Vitals: Temp Pulse Resp BP Pulse Ox 98.5 F 67 18 111/69 98 07/12/17 07:29 07/12/17 07:29 07/12/17 07:29 07/12/17 07:29 07/12/17 07:29 General appearance: Present: no acute distress, well-nourished - EENT Eyes: Present: PERRL ENT: hearing intact, clear oral mucosa - Neck Neck: Present: supple, normal ROM - Respiratory Respiratory effort: normal Respiratory: bilateral: CTA - Cardiovascular Heart Sounds: Present: S1 & S2. Absent: rub, click - Extremities Extremities: pulses symmetrical, No edema Peripheral Pulses: within normal limits - Abdominal General gastrointestinal: Present: soft, non-tender, non-distended, normal bowel sounds Male genitourinary: Present: normal - Integumentary Integumentary: Present: clear, warm, dry - Musculoskeletal Musculoskeletal: gait normal, strength equal bilaterally - Psychiatric Psychiatric: appropriate mood/affect, intact judgment & insight - Neurologic Neurologic: CNII-XII intact, moves all extremities Plan Activity: no restrictions Weight Bearing Status: Full Weight Bearing Diet: regular Follow up with: ISABELLE PALACIO DO [Staff Physician] - 10 Days PRIMARY CARE, [Referring] - 3-5 Days Prescriptions: Ciprofloxacin HCl [Cipro] 500 mg PO BID #20 tablet oxyCODONE /ACETAMINOPHEN [Percocet 5/325 mg] 2 tab PO Q6H PRN #20 tablet PRN Reason: Pain, Moderate (4-6)
== END 2017-07-12 15:14 | disposition home or self-care (01) | DRG 872 ==
LOC: ED 07:34 → 3A 16:07
PROVIDERS: ADMIT Internal Medicine; ATTEND Hospitalist
DX: A41.9 Sepsis, unspecified organism (principal); K57.20 Diverticulitis of large intestine with perforation and abscess without bleeding; F17.210 Nicotine dependence, cigarettes, uncomplicated; Z90.49 Acquired absence of other specified parts of digestive tract
CPT/HCPCS: 36415; 74177; 80048; 80053; 81001; 82140; 83690; 85025; 86140; 96361; 96374; 96375; J1650; J1885; J1956; J2270; J2405; J7030; Q9967